=== PATIENT | female | born 1985 | race Caucasian/White ===

== ENCOUNTER 2022-09-05 08:59 | Outpatient (CLI) | payer MEDICARE, MEDICAID, SELFPAY ==
[2022-09-05 10:36] LABS: Anion Gap 10 mmol/L (8-16); Blood Urea Nitrogen 25 mg/dL (7-17); Calcium 9.7 mg/dL (8.4-10.2); Carbon Dioxide 19 mmol/L (22-30); Chloride 109 mmol/L (98-107); Estimated Glomerular Filt Rate 43; Glucose 106 mg/dL (65-110); Phosphorus 2.5 mg/dL (2.5-4.5); Sodium 138 mmol/L (137-145)
[2022-09-05 11:30] LABS: Basophils Percent Auto 0.4 % (0.2-1.2); Eosinophils Absolute Auto 0.1 K/mm3 (0-0.3); Hematocrit 32.4 % (37.0-47.0); Hemoglobin 10.5 g/dL (12.0-15.0); Immature Granulocyte Percent A 1.5 % (0-0.5); Lymphocytes Absolute Auto 0.41 K/mm3 (0.9-3.2); Lymphocytes Percent Auto 6.1 % (18.3-44.2); Mean Corpuscular HGB Conc 32.4 g/dl (32-36); Mean Corpuscular Hemoglobin 33.4 pg (26-34); Mean Corpuscular Volume 103.2 fl (80-100); Mean Platelet Volume 9.8 fl (7.4-10.4); Monocytes Absolute Auto 0.4 K/mm3 (0.1-0.6); Monocytes Percent Auto 6.1 % (2.6-8.5); Neutrophils Absolute Auto 5.8 K/mm3 (1.3-6.7); Neutrophils Percent Auto 84.9 % (45.5-73.1); Platelet Count Result 231 k/mm3 (150-375); Red Blood Count 3.14 M/mm3 (4.2-5.4); Red Cell Distribution Width 15.9 % (11.5-14.5); White Blood Count 6.8 K/mm3 (4.5-10.0)
[2022-09-05 11:55] LABS: Creatinine Urine 141.8 mg/dL
[2022-09-05 11:59] LABS: MALB Creatinine Ratio 14.6 mg/g (0-30); Microalbumin Urine Random 20.7 mg/L (0-16.7)
[2022-09-07 20:46] LABS: Tacrolimus Prograf 7.6 mcg/L
== END 2022-09-05 09:00 | disposition home or self-care (01) ==
PROVIDERS: Visit Provider Internal Medicine Nephrology
DX: Z94.0 Kidney transplant status (principal)
CPT/HCPCS: 36415; 80069; 80197; 82043; 85025

== ENCOUNTER 2022-12-05 08:37 | Outpatient (RCR) | payer MEDICARE, MEDICAID, SELFPAY ==
[2022-09-08 09:12] LABS: Albumin Level 3.8 g/dL (3.5-5.1); Anion Gap 5 mmol/L (8-16); Blood Urea Nitrogen 30 mg/dL (7-17); Calcium 10.2 mg/dL (8.4-10.2); Carbon Dioxide 22 mmol/L (22-30); Chloride 107 mmol/L (98-107); Estimated Glomerular Filt Rate 39; Glucose 93 mg/dL (65-110); Phosphorus 2.5 mg/dL (2.5-4.5); Potassium 3.8 mmol/L (3.4-5.0); Sodium 134 mmol/L (137-145)
[2022-09-08 09:17] LABS: Basophils Percent Auto 0.4 % (0.2-1.2); Eosinophils Absolute Auto 0.1 K/mm3 (0-0.3); Hemoglobin 10.1 g/dL (12.0-15.0); Immature Granulocyte Absolute 0.08 K/mm3 (0.00-0.031); Immature Granulocyte Percent A 1.5 % (0-0.5); Lymphocytes Percent Auto 7.7 % (18.3-44.2); Mean Corpuscular HGB Conc 32.6 g/dl (32-36); Mean Corpuscular Hemoglobin 33.4 pg (26-34); Mean Corpuscular Volume 102.6 fl (80-100); Monocytes Absolute Auto 0.4 K/mm3 (0.1-0.6); Monocytes Percent Auto 7.5 % (2.6-8.5); Neutrophils Absolute Auto 4.3 K/mm3 (1.3-6.7); Neutrophils Percent Auto 81.9 % (45.5-73.1); Platelet Count Result 243 k/mm3 (150-375); Red Blood Count 3.02 M/mm3 (4.2-5.4); Red Cell Distribution Width 15.5 % (11.5-14.5); White Blood Count 5.2 K/mm3 (4.5-10.0)
[2022-09-08 09:29] LABS: Creatinine Urine 103.1 mg/dL
[2022-09-08 09:34] LABS: MALB Creatinine Ratio 20.4 mg/g (0-30)
[2022-09-12 09:24] LABS: Basophils Percent Auto 0.5 % (0.2-1.2); Eosinophils Absolute Auto 0.1 K/mm3 (0-0.3); Eosinophils Percent Auto 1.2 % (0-4.4); Hematocrit 32.2 % (37.0-47.0); Hemoglobin 10.2 g/dL (12.0-15.0); Immature Granulocyte Absolute 0.07 K/mm3 (0.00-0.031); Immature Granulocyte Percent A 1.2 % (0-0.5); Lymphocytes Absolute Auto 0.46 K/mm3 (0.9-3.2); Lymphocytes Percent Auto 7.9 % (18.3-44.2); Mean Corpuscular HGB Conc 31.7 g/dl (32-36); Mean Corpuscular Hemoglobin 33.1 pg (26-34); Mean Corpuscular Volume 104.5 fl (80-100); Monocytes Absolute Auto 0.5 K/mm3 (0.1-0.6); Monocytes Percent Auto 7.9 % (2.6-8.5); Neutrophils Absolute Auto 4.8 K/mm3 (1.3-6.7); Neutrophils Percent Auto 81.3 % (45.5-73.1); Platelet Count Result 237 k/mm3 (150-375); Red Blood Count 3.08 M/mm3 (4.2-5.4); Red Cell Distribution Width 14.9 % (11.5-14.5); White Blood Count 5.8 K/mm3 (4.5-10.0)
[2022-09-12 13:09] LABS: Albumin Level 3.6 g/dL (3.5-5.1); Anion Gap 5 mmol/L (8-16); Blood Urea Nitrogen 27 mg/dL (7-17); Calcium 9.9 mg/dL (8.4-10.2); Carbon Dioxide 21 mmol/L (22-30); Chloride 109 mmol/L (98-107); Estimated Glomerular Filt Rate 36; Glucose 80 mg/dL (65-110); Phosphorus 2.6 mg/dL (2.5-4.5); Potassium 3.6 mmol/L (3.4-5.0); Sodium 135 mmol/L (137-145)
[2022-09-12 18:11] LABS: Creatinine Urine 105.1 mg/dL
[2022-09-12 18:16] LABS: MALB Creatinine Ratio 26.7 mg/g (0-30); Microalbumin Urine Random 28.1 mg/L (0-16.7)
[2022-09-14 18:39] LABS: Tacrolimus Prograf 9.4 mcg/L
[2022-09-19 10:32] LABS: Basophils Percent Auto 0.5 % (0.2-1.2); Eosinophils Absolute Auto 0.1 K/mm3 (0-0.3); Eosinophils Percent Auto 0.9 % (0-4.4); Hematocrit 32.2 % (37.0-47.0); Hemoglobin 10.5 g/dL (12.0-15.0); Immature Granulocyte Absolute 0.05 K/mm3 (0.00-0.031); Immature Granulocyte Percent A 0.8 % (0-0.5); Lymphocytes Absolute Auto 0.51 K/mm3 (0.9-3.2); Mean Corpuscular HGB Conc 32.6 g/dl (32-36); Mean Corpuscular Hemoglobin 32.7 pg (26-34); Mean Corpuscular Volume 100.3 fl (80-100); Mean Platelet Volume 10.4 fl (7.4-10.4); Monocytes Absolute Auto 0.5 K/mm3 (0.1-0.6); Monocytes Percent Auto 8.4 % (2.6-8.5); Neutrophils Absolute Auto 5.2 K/mm3 (1.3-6.7); Neutrophils Percent Auto 81.4 % (45.5-73.1); Platelet Count Result 269 k/mm3 (150-375); Red Blood Count 3.21 M/mm3 (4.2-5.4); Red Cell Distribution Width 13.9 % (11.5-14.5); White Blood Count 6.4 K/mm3 (4.5-10.0)
[2022-09-19 11:36] LABS: Albumin Level 3.7 g/dL (3.5-5.1); Anion Gap 6 mmol/L (8-16); Blood Urea Nitrogen 32 mg/dL (7-17); Calcium 9.3 mg/dL (8.4-10.2); Carbon Dioxide 23 mmol/L (22-30); Chloride 109 mmol/L (98-107); Estimated Glomerular Filt Rate 30; Glucose 84 mg/dL (65-110); Phosphorus 2.9 mg/dL (2.5-4.5); Potassium 3.7 mmol/L (3.4-5.0); Sodium 138 mmol/L (137-145)
[2022-09-19 12:45] LABS: Creatinine Urine 109.9 mg/dL
[2022-09-19 12:52] LABS: MALB Creatinine Ratio 28.5 mg/g (0-30); Microalbumin Urine Random 31.3 mg/L (0-16.7)
[2022-09-21 15:03] LABS: Tacrolimus Prograf 13.6 mcg/L
[2022-09-26 09:28] LABS: Basophils Percent Auto 0.6 % (0.2-1.2); Eosinophils Absolute Auto 0.1 K/mm3 (0-0.3); Eosinophils Percent Auto 0.9 % (0-4.4); Hematocrit 32.6 % (37.0-47.0); Hemoglobin 10.6 g/dL (12.0-15.0); Immature Granulocyte Absolute 0.08 K/mm3 (0.00-0.031); Immature Granulocyte Percent A 1.2 % (0-0.5); Lymphocytes Absolute Auto 0.44 K/mm3 (0.9-3.2); Lymphocytes Percent Auto 6.8 % (18.3-44.2); Mean Corpuscular HGB Conc 32.5 g/dl (32-36); Mean Corpuscular Hemoglobin 32.4 pg (26-34); Mean Corpuscular Volume 99.7 fl (80-100); Mean Platelet Volume 9.7 fl (7.4-10.4); Monocytes Absolute Auto 0.5 K/mm3 (0.1-0.6); Monocytes Percent Auto 8.1 % (2.6-8.5); Neutrophils Absolute Auto 5.3 K/mm3 (1.3-6.7); Neutrophils Percent Auto 82.4 % (45.5-73.1); Platelet Count Result 260 k/mm3 (150-375); Red Blood Count 3.27 M/mm3 (4.2-5.4); Red Cell Distribution Width 13.3 % (11.5-14.5); White Blood Count 6.4 K/mm3 (4.5-10.0)
[2022-09-26 09:38] LABS: Albumin Level 3.8 g/dL (3.5-5.1); Anion Gap 7 mmol/L (8-16); Blood Urea Nitrogen 39 mg/dL (7-17); Calcium 9.5 mg/dL (8.4-10.2); Carbon Dioxide 24 mmol/L (22-30); Chloride 106 mmol/L (98-107); Estimated Glomerular Filt Rate 24; Glucose 96 mg/dL (65-110); Phosphorus 3.3 mg/dL (2.5-4.5); Potassium 3.4 mmol/L (3.4-5.0); Sodium 137 mmol/L (137-145)
[2022-09-26 14:10] LABS: MALB Creatinine Ratio 7.1 mg/g (0-30); Microalbumin Urine Random 7.4 mg/L (0-16.7)
[2022-09-28 20:56] LABS: Tacrolimus Prograf 10.5 mcg/L
[2022-10-10 10:26] LABS: Basophils Absolute Auto 0.1 K/mm3 (0.0-0.1); Basophils Percent Auto 1.1 % (0.2-1.2); Eosinophils Absolute Auto 0.1 K/mm3 (0-0.3); Eosinophils Percent Auto 1.6 % (0-4.4); Hemoglobin 10.7 g/dL (12.0-15.0); Immature Granulocyte Absolute 0.03 K/mm3 (0.00-0.031); Immature Granulocyte Percent A 0.5 % (0-0.5); Lymphocytes Absolute Auto 0.36 K/mm3 (0.9-3.2); Lymphocytes Percent Auto 6.4 % (18.3-44.2); Mean Corpuscular HGB Conc 32.4 g/dl (32-36); Mean Corpuscular Hemoglobin 32.4 pg (26-34); Monocytes Absolute Auto 0.7 K/mm3 (0.1-0.6); Monocytes Percent Auto 12.1 % (2.6-8.5); Neutrophils Absolute Auto 4.4 K/mm3 (1.3-6.7); Neutrophils Percent Auto 78.3 % (45.5-73.1); Platelet Count Result 349 k/mm3 (150-375); Red Cell Distribution Width 13.4 % (11.5-14.5); White Blood Count 5.6 K/mm3 (4.5-10.0)
[2022-10-10 10:35] LABS: Albumin Level 4.1 g/dL (3.5-5.1); Anion Gap 10 mmol/L (8-16); Blood Urea Nitrogen 38 mg/dL (7-17); Calcium 10.3 mg/dL (8.4-10.2); Carbon Dioxide 25 mmol/L (22-30); Chloride 104 mmol/L (98-107); Estimated Glomerular Filt Rate 34; Glucose 79 mg/dL (65-110); Phosphorus 2.9 mg/dL (2.5-4.5); Potassium 3.3 mmol/L (3.4-5.0); Sodium 139 mmol/L (137-145)
[2022-10-10 11:01] LABS: Creatinine Urine 80.2 mg/dL
[2022-10-10 11:06] LABS: MALB Creatinine Ratio 7.7 mg/g (0-30); Microalbumin Urine Random 6.2 mg/L (0-16.7)
[2022-10-12 23:38] LABS: Tacrolimus Prograf 6.9 mcg/L
[2022-10-17 09:16] LABS: Basophils Absolute Auto 0.1 K/mm3 (0.0-0.1); Eosinophils Absolute Auto 0.1 K/mm3 (0-0.3); Eosinophils Percent Auto 1.2 % (0-4.4); Hematocrit 32.2 % (37.0-47.0); Hemoglobin 10.4 g/dL (12.0-15.0); Immature Granulocyte Absolute 0.03 K/mm3 (0.00-0.031); Immature Granulocyte Percent A 0.6 % (0-0.5); Lymphocytes Absolute Auto 0.27 K/mm3 (0.9-3.2); Lymphocytes Percent Auto 5.2 % (18.3-44.2); Mean Corpuscular HGB Conc 32.3 g/dl (32-36); Mean Corpuscular Hemoglobin 32.9 pg (26-34); Mean Corpuscular Volume 101.9 fl (80-100); Mean Platelet Volume 9.9 fl (7.4-10.4); Monocytes Absolute Auto 0.4 K/mm3 (0.1-0.6); Monocytes Percent Auto 8.5 % (2.6-8.5); Neutrophils Absolute Auto 4.3 K/mm3 (1.3-6.7); Neutrophils Percent Auto 83.5 % (45.5-73.1); Platelet Count Result 314 k/mm3 (150-375); Red Blood Count 3.16 M/mm3 (4.2-5.4); Red Cell Distribution Width 13.9 % (11.5-14.5); White Blood Count 5.2 K/mm3 (4.5-10.0)
[2022-10-17 09:25] LABS: Albumin Level 3.8 g/dL (3.5-5.1); Anion Gap 9 mmol/L (8-16); Blood Urea Nitrogen 31 mg/dL (7-17); Calcium 10.3 mg/dL (8.4-10.2); Carbon Dioxide 20 mmol/L (22-30); Chloride 108 mmol/L (98-107); Estimated Glomerular Filt Rate 39; Glucose 94 mg/dL (65-110); Phosphorus 2.6 mg/dL (2.5-4.5); Sodium 137 mmol/L (137-145)
[2022-10-17 09:49] LABS: Creatinine Urine 78.1 mg/dL
[2022-10-17 09:53] LABS: MALB Creatinine Ratio 13.7 mg/g (0-30); Microalbumin Urine Random 10.7 mg/L (0-16.7)
[2022-10-20 08:25] LABS: Tacrolimus Prograf 6.4 mcg/L
[2022-10-24 09:16] LABS: Basophils Absolute Auto 0.1 K/mm3 (0.0-0.1); Basophils Percent Auto 0.9 % (0.2-1.2); Eosinophils Absolute Auto 0.1 K/mm3 (0-0.3); Eosinophils Percent Auto 2.1 % (0-4.4); Hematocrit 34.6 % (37.0-47.0); Hemoglobin 11.2 g/dL (12.0-15.0); Immature Granulocyte Absolute 0.06 K/mm3 (0.00-0.031); Immature Granulocyte Percent A 1.1 % (0-0.5); Lymphocytes Absolute Auto 0.36 K/mm3 (0.9-3.2); Lymphocytes Percent Auto 6.4 % (18.3-44.2); Mean Corpuscular HGB Conc 32.4 g/dl (32-36); Mean Corpuscular Hemoglobin 32.9 pg (26-34); Mean Corpuscular Volume 101.8 fl (80-100); Mean Platelet Volume 9.6 fl (7.4-10.4); Monocytes Absolute Auto 0.4 K/mm3 (0.1-0.6); Monocytes Percent Auto 7.3 % (2.6-8.5); Neutrophils Absolute Auto 4.6 K/mm3 (1.3-6.7); Neutrophils Percent Auto 82.2 % (45.5-73.1); Platelet Count Result 366 k/mm3 (150-375); Red Cell Distribution Width 14.3 % (11.5-14.5); White Blood Count 5.6 K/mm3 (4.5-10.0)
[2022-10-24 09:31] LABS: Anion Gap 9 mmol/L (8-16); Blood Urea Nitrogen 29 mg/dL (7-17); Calcium 10.3 mg/dL (8.4-10.2); Carbon Dioxide 23 mmol/L (22-30); Chloride 107 mmol/L (98-107); Estimated Glomerular Filt Rate 39; Glucose 102 mg/dL (65-110); Phosphorus 2.8 mg/dL (2.5-4.5); Potassium 3.5 mmol/L (3.4-5.0); Sodium 139 mmol/L (137-145)
[2022-10-24 09:58] LABS: Creatinine Urine 95.1 mg/dL
[2022-10-24 10:03] LABS: MALB Creatinine Ratio 23.1 mg/g (0-30)
[2022-10-26 20:57] LABS: Tacrolimus Prograf 7.8 mcg/L
[2022-10-31 09:02] LABS: Basophils Absolute Auto 0.1 K/mm3 (0.0-0.1); Eosinophils Absolute Auto 0.1 K/mm3 (0-0.3); Hematocrit 33.7 % (37.0-47.0); Hemoglobin 10.9 g/dL (12.0-15.0); Immature Granulocyte Absolute 0.09 K/mm3 (0.00-0.031); Immature Granulocyte Percent A 1.8 % (0-0.5); Lymphocytes Absolute Auto 0.29 K/mm3 (0.9-3.2); Lymphocytes Percent Auto 5.8 % (18.3-44.2); Mean Corpuscular HGB Conc 32.3 g/dl (32-36); Mean Corpuscular Hemoglobin 32.6 pg (26-34); Mean Corpuscular Volume 100.9 fl (80-100); Mean Platelet Volume 9.5 fl (7.4-10.4); Monocytes Absolute Auto 0.5 K/mm3 (0.1-0.6); Monocytes Percent Auto 10.7 % (2.6-8.5); Neutrophils Absolute Auto 3.9 K/mm3 (1.3-6.7); Neutrophils Percent Auto 78.7 % (45.5-73.1); Platelet Count Result 306 k/mm3 (150-375); Red Blood Count 3.34 M/mm3 (4.2-5.4); Red Cell Distribution Width 14.8 % (11.5-14.5)
[2022-10-31 09:15] LABS: Albumin Level 3.9 g/dL (3.5-5.1); Anion Gap 7 mmol/L (8-16); Blood Urea Nitrogen 29 mg/dL (7-17); Calcium 9.8 mg/dL (8.4-10.2); Carbon Dioxide 24 mmol/L (22-30); Chloride 106 mmol/L (98-107); Estimated Glomerular Filt Rate 39; Glucose 104 mg/dL (65-110); Phosphorus 2.8 mg/dL (2.5-4.5); Potassium 3.6 mmol/L (3.4-5.0); Sodium 137 mmol/L (137-145)
[2022-10-31 10:04] LABS: Creatinine Urine 112.2 mg/dL
[2022-10-31 10:09] LABS: MALB Creatinine Ratio 11.5 mg/g (0-30); Microalbumin Urine Random 12.9 mg/L (0-16.7)
[2022-11-02 18:59] LABS: Tacrolimus Prograf 6.9 mcg/L
[2022-11-07 09:40] LABS: Basophils Absolute Auto 0.1 K/mm3 (0.0-0.1); Basophils Percent Auto 1.3 % (0.2-1.2); Eosinophils Absolute Auto 0.1 K/mm3 (0-0.3); Eosinophils Percent Auto 2.3 % (0-4.4); Hematocrit 32.8 % (37.0-47.0); Hemoglobin 10.6 g/dL (12.0-15.0); Immature Granulocyte Absolute 0.08 K/mm3 (0.00-0.031); Lymphocytes Absolute Auto 0.28 K/mm3 (0.9-3.2); Mean Corpuscular HGB Conc 32.3 g/dl (32-36); Mean Corpuscular Hemoglobin 32.7 pg (26-34); Mean Corpuscular Volume 101.2 fl (80-100); Mean Platelet Volume 9.8 fl (7.4-10.4); Monocytes Absolute Auto 0.4 K/mm3 (0.1-0.6); Monocytes Percent Auto 10.8 % (2.6-8.5); Neutrophils Absolute Auto 3.1 K/mm3 (1.3-6.7); Neutrophils Percent Auto 76.6 % (45.5-73.1); Platelet Count Result 351 k/mm3 (150-375); Red Blood Count 3.24 M/mm3 (4.2-5.4); Red Cell Distribution Width 15.1 % (11.5-14.5)
[2022-11-07 09:54] LABS: Albumin Level 3.9 g/dL (3.5-5.1); Anion Gap 6 mmol/L (8-16); Blood Urea Nitrogen 29 mg/dL (7-17); Calcium 10.1 mg/dL (8.4-10.2); Carbon Dioxide 24 mmol/L (22-30); Chloride 109 mmol/L (98-107); Estimated Glomerular Filt Rate 30; Glucose 96 mg/dL (65-110); Phosphorus 2.6 mg/dL (2.5-4.5); Potassium 3.6 mmol/L (3.4-5.0); Sodium 139 mmol/L (137-145)
[2022-11-07 10:52] LABS: Creatinine Urine 118.6 mg/dL
[2022-11-07 11:30] LABS: MALB Creatinine Ratio 263.7 mg/g (0-30); Microalbumin Urine Random 312.7 mg/L (0-16.7)
[2022-11-10 02:10] LABS: Tacrolimus Prograf 9.3 mcg/L
[2022-11-14 07:32] LABS: Basophils Percent Auto 0.8 % (0.2-1.2); Eosinophils Absolute Auto 0.1 K/mm3 (0-0.3); Eosinophils Percent Auto 2.5 % (0-4.4); Hematocrit 32.8 % (37.0-47.0); Hemoglobin 10.8 g/dL (12.0-15.0); Immature Granulocyte Absolute 0.04 K/mm3 (0.00-0.031); Immature Granulocyte Percent A 0.8 % (0-0.5); Lymphocytes Absolute Auto 0.31 K/mm3 (0.9-3.2); Lymphocytes Percent Auto 6.6 % (18.3-44.2); Mean Corpuscular HGB Conc 32.9 g/dl (32-36); Mean Corpuscular Volume 100.3 fl (80-100); Mean Platelet Volume 9.4 fl (7.4-10.4); Monocytes Absolute Auto 0.5 K/mm3 (0.1-0.6); Monocytes Percent Auto 10.6 % (2.6-8.5); Neutrophils Absolute Auto 3.7 K/mm3 (1.3-6.7); Neutrophils Percent Auto 78.7 % (45.5-73.1); Platelet Count Result 352 k/mm3 (150-375); Red Blood Count 3.27 M/mm3 (4.2-5.4); Red Cell Distribution Width 15.6 % (11.5-14.5); White Blood Count 4.7 K/mm3 (4.5-10.0)
[2022-11-14 07:42] LABS: Albumin Level 3.9 g/dL (3.5-5.1); Anion Gap 5 mmol/L (8-16); Blood Urea Nitrogen 33 mg/dL (7-17); Calcium 10.6 mg/dL (8.4-10.2); Carbon Dioxide 25 mmol/L (22-30); Chloride 105 mmol/L (98-107); Estimated Glomerular Filt Rate 34; Glucose 91 mg/dL (65-110); Phosphorus 3.2 mg/dL (2.5-4.5); Potassium 3.6 mmol/L (3.4-5.0); Sodium 135 mmol/L (137-145)
[2022-11-14 08:30] LABS: Appearance Urine Clear (Clear); Bilirubin Urine Negative (Negative); Blood Urine Negative (Negative); Color Urine Yellow (Yellow); Glucose Urine UA Negative (Negative); Ketones Urine Negative (Negative); Leukocyte Esterase Ur Negative LEU/UL (NEGATIVE); Nitrate Urine Negative (Negative); Protein Urine Negative (Negative); Specific Grav Ur 1.014 (1.001-1.035); Urobilinogen Urine 0.2 mg/dL (<2.0); pH Urine 6.5 (5.0-9.0)
[2022-11-14 08:39] LABS: Add Urine Microscopic? NO
[2022-11-14 09:09] LABS: MALB Creatinine Ratio 11.7 mg/g (0-30); Microalbumin Urine Random 7.7 mg/L (0-16.7)
[2022-11-21 09:40] LABS: Basophils Absolute Auto 0.1 K/mm3 (0.0-0.1); Basophils Percent Auto 0.9 % (0.2-1.2); Eosinophils Absolute Auto 0.1 K/mm3 (0-0.3); Eosinophils Percent Auto 2.1 % (0-4.4); Hematocrit 31.2 % (37.0-47.0); Hemoglobin 10.2 g/dL (12.0-15.0); Immature Granulocyte Absolute 0.07 K/mm3 (0.00-0.031); Immature Granulocyte Percent A 1.2 % (0-0.5); Lymphocytes Absolute Auto 0.36 K/mm3 (0.9-3.2); Lymphocytes Percent Auto 6.3 % (18.3-44.2); Mean Corpuscular HGB Conc 32.7 g/dl (32-36); Mean Corpuscular Hemoglobin 33.1 pg (26-34); Mean Corpuscular Volume 101.3 fl (80-100); Mean Platelet Volume 9.8 fl (7.4-10.4); Monocytes Absolute Auto 0.5 K/mm3 (0.1-0.6); Monocytes Percent Auto 7.8 % (2.6-8.5); Neutrophils Absolute Auto 4.7 K/mm3 (1.3-6.7); Neutrophils Percent Auto 81.7 % (45.5-73.1); Platelet Count Result 335 k/mm3 (150-375); Red Blood Count 3.08 M/mm3 (4.2-5.4); Red Cell Distribution Width 16.2 % (11.5-14.5); White Blood Count 5.7 K/mm3 (4.5-10.0)
[2022-11-21 09:48] LABS: Albumin Level 3.7 g/dL (3.5-5.1); Anion Gap 8 mmol/L (8-16); Blood Urea Nitrogen 25 mg/dL (7-17); Calcium 9.7 mg/dL (8.4-10.2); Carbon Dioxide 22 mmol/L (22-30); Chloride 107 mmol/L (98-107); Estimated Glomerular Filt Rate 43; Glucose 100 mg/dL (65-110); Phosphorus 2.8 mg/dL (2.5-4.5); Potassium 3.4 mmol/L (3.4-5.0); Sodium 137 mmol/L (137-145)
[2022-11-21 09:58] LABS: Creatinine Urine 87.3 mg/dL
[2022-11-21 10:04] LABS: MALB Creatinine Ratio 11.3 mg/g (0-30); Microalbumin Urine Random 9.9 mg/L (0-16.7)
[2022-11-24 16:58] LABS: Tacrolimus Prograf 6.5 mcg/L
[2022-11-29 09:12] LABS: Basophils Percent Auto 0.6 % (0.2-1.2); Eosinophils Absolute Auto 0.1 K/mm3 (0-0.3); Eosinophils Percent Auto 2.2 % (0-4.4); Hematocrit 31.2 % (37.0-47.0); Hemoglobin 10.1 g/dL (12.0-15.0); Immature Granulocyte Absolute 0.07 K/mm3 (0.00-0.031); Immature Granulocyte Percent A 1.4 % (0-0.5); Mean Corpuscular HGB Conc 32.4 g/dl (32-36); Mean Corpuscular Hemoglobin 32.9 pg (26-34); Mean Corpuscular Volume 101.6 fl (80-100); Mean Platelet Volume 9.7 fl (7.4-10.4); Monocytes Absolute Auto 0.5 K/mm3 (0.1-0.6); Monocytes Percent Auto 9.6 % (2.6-8.5); Neutrophils Percent Auto 80.2 % (45.5-73.1); Platelet Count Result 277 k/mm3 (150-375); Red Blood Count 3.07 M/mm3 (4.2-5.4)
[2022-11-29 09:22] LABS: Albumin Level 3.7 g/dL (3.5-5.1); Anion Gap 8 mmol/L (8-16); Blood Urea Nitrogen 34 mg/dL (7-17); Calcium 9.6 mg/dL (8.4-10.2); Carbon Dioxide 23 mmol/L (22-30); Chloride 106 mmol/L (98-107); Estimated Glomerular Filt Rate 24; Glucose 99 mg/dL (65-110); Phosphorus 3.4 mg/dL (2.5-4.5); Potassium 3.5 mmol/L (3.4-5.0); Sodium 137 mmol/L (137-145)
[2022-11-29 09:41] LABS: Creatinine Urine 113.5 mg/dL
[2022-11-29 09:51] LABS: MALB Creatinine Ratio < 5.3 mg/g (0-30); Microalbumin Urine Random < 6.0 mg/L (0-16.7)
[2022-12-02 17:08] LABS: Tacrolimus Prograf 7.8 mcg/L
[2022-12-05 09:05] LABS: Basophils Percent Auto 0.7 % (0.2-1.2); Eosinophils Absolute Auto 0.1 K/mm3 (0-0.3); Eosinophils Percent Auto 2.1 % (0-4.4); Hematocrit 30.6 % (37.0-47.0); Immature Granulocyte Absolute 0.05 K/mm3 (0.00-0.031); Immature Granulocyte Percent A 1.2 % (0-0.5); Lymphocytes Absolute Auto 0.24 K/mm3 (0.9-3.2); Lymphocytes Percent Auto 5.6 % (18.3-44.2); Mean Corpuscular HGB Conc 32.7 g/dl (32-36); Mean Corpuscular Hemoglobin 33.2 pg (26-34); Mean Corpuscular Volume 101.7 fl (80-100); Mean Platelet Volume 9.9 fl (7.4-10.4); Monocytes Absolute Auto 0.4 K/mm3 (0.1-0.6); Monocytes Percent Auto 9.2 % (2.6-8.5); Neutrophils Absolute Auto 3.5 K/mm3 (1.3-6.7); Neutrophils Percent Auto 81.2 % (45.5-73.1); Platelet Count Result 292 k/mm3 (150-375); Red Blood Count 3.01 M/mm3 (4.2-5.4); Red Cell Distribution Width 17.7 % (11.5-14.5); White Blood Count 4.3 K/mm3 (4.5-10.0)
[2022-12-05 09:20] LABS: Albumin Level 3.7 g/dL (3.5-5.1); Anion Gap 8 mmol/L (8-16); Blood Urea Nitrogen 26 mg/dL (7-17); Calcium 9.9 mg/dL (8.4-10.2); Carbon Dioxide 23 mmol/L (22-30); Chloride 107 mmol/L (98-107); Estimated Glomerular Filt Rate 32; Glucose 101 mg/dL (65-110); Phosphorus 2.8 mg/dL (2.5-4.5); Potassium 3.9 mmol/L (3.4-5.0); Sodium 138 mmol/L (137-145)
[2022-12-05 09:53] LABS: Creatinine Urine 99.6 mg/dL
[2022-12-05 09:57] LABS: MALB Creatinine Ratio 57.7 mg/g (0-30); Microalbumin Urine Random 57.5 mg/L (0-16.7)
[2022-12-08 21:04] LABS: Tacrolimus Prograf 4.2 mcg/L
== END 2022-12-07 23:59 | disposition home or self-care (01) ==
LOC: ANHLAB 08:37
PROVIDERS: Visit Provider Internal Medicine Nephrology
DX: Z94.0 Kidney transplant status (principal)
CPT/HCPCS: 36415; 80069; 80197; 81003; 82043; 85025; 87798; 87799

== ENCOUNTER 2023-01-09 08:48 | Outpatient (RCR) | payer MEDICARE, MEDICAID, SELFPAY ==
[2022-12-14 10:05] LABS: Basophils Percent Auto 0.7 % (0.2-1.2); Eosinophils Absolute Auto 0.1 K/mm3 (0-0.3); Eosinophils Percent Auto 2.2 % (0-4.4); Hematocrit 30.4 % (37.0-47.0); Hemoglobin 9.9 g/dL (12.0-15.0); Immature Granulocyte Absolute 0.15 K/mm3 (0.00-0.031); Immature Granulocyte Percent A 3.7 % (0-0.5); Lymphocytes Percent Auto 7.4 % (18.3-44.2); Mean Corpuscular HGB Conc 32.6 g/dl (32-36); Mean Corpuscular Hemoglobin 33.7 pg (26-34); Mean Corpuscular Volume 103.4 fl (80-100); Mean Platelet Volume 10.2 fl (7.4-10.4); Monocytes Absolute Auto 0.3 K/mm3 (0.1-0.6); Monocytes Percent Auto 7.9 % (2.6-8.5); Neutrophils Absolute Auto 3.2 K/mm3 (1.3-6.7); Neutrophils Percent Auto 78.1 % (45.5-73.1); Platelet Count Result 307 k/mm3 (150-375); Red Blood Count 2.94 M/mm3 (4.2-5.4)
[2022-12-14 10:16] LABS: Albumin Level 3.5 g/dL (3.5-5.1); Anion Gap 5 mmol/L (8-16); Blood Urea Nitrogen 20 mg/dL (7-17); Carbon Dioxide 23 mmol/L (22-30); Chloride 110 mmol/L (98-107); Estimated Glomerular Filt Rate 46; Glucose 93 mg/dL (65-110); Phosphorus 2.6 mg/dL (2.5-4.5); Potassium 3.9 mmol/L (3.4-5.0); Sodium 138 mmol/L (137-145)
[2022-12-14 10:59] LABS: Creatinine Urine 174.8 mg/dL
[2022-12-14 11:03] LABS: MALB Creatinine Ratio 5.8 mg/g (0-30); Microalbumin Urine Random 10.1 mg/L (0-16.7)
[2022-12-17 10:12] LABS: Tacrolimus Prograf 6.4 mcg/L
[2022-12-19 09:21] LABS: Basophils Percent Auto 0.7 % (0.2-1.2); Eosinophils Absolute Auto 0.1 K/mm3 (0-0.3); Eosinophils Percent Auto 1.8 % (0-4.4); Hematocrit 29.1 % (37.0-47.0); Hemoglobin 9.7 g/dL (12.0-15.0); Immature Granulocyte Absolute 0.07 K/mm3 (0.00-0.031); Immature Granulocyte Percent A 1.6 % (0-0.5); Lymphocytes Absolute Auto 0.28 K/mm3 (0.9-3.2); Lymphocytes Percent Auto 6.4 % (18.3-44.2); Mean Corpuscular HGB Conc 33.3 g/dl (32-36); Mean Corpuscular Hemoglobin 34.5 pg (26-34); Mean Corpuscular Volume 103.6 fl (80-100); Mean Platelet Volume 9.9 fl (7.4-10.4); Monocytes Absolute Auto 0.5 K/mm3 (0.1-0.6); Monocytes Percent Auto 11.3 % (2.6-8.5); Neutrophils Absolute Auto 3.4 K/mm3 (1.3-6.7); Neutrophils Percent Auto 78.2 % (45.5-73.1); Platelet Count Result 257 k/mm3 (150-375); Red Blood Count 2.81 M/mm3 (4.2-5.4); Red Cell Distribution Width 20.5 % (11.5-14.5); White Blood Count 4.4 K/mm3 (4.5-10.0)
[2022-12-19 09:32] LABS: Albumin Level 3.4 g/dL (3.5-5.1); Anion Gap 6 mmol/L (8-16); Blood Urea Nitrogen 20 mg/dL (7-17); Calcium 9.4 mg/dL (8.4-10.2); Carbon Dioxide 20 mmol/L (22-30); Chloride 110 mmol/L (98-107); Estimated Glomerular Filt Rate 46; Glucose 103 mg/dL (65-110); Phosphorus 2.9 mg/dL (2.5-4.5); Potassium 3.8 mmol/L (3.4-5.0); Sodium 136 mmol/L (137-145)
[2022-12-19 09:56] LABS: Creatinine Urine 124.4 mg/dL
[2022-12-19 10:01] LABS: MALB Creatinine Ratio < 4.8 mg/g (0-30); Microalbumin Urine Random < 6.0 mg/L (0-16.7)
[2022-12-22 07:13] LABS: Tacrolimus Prograf 5.9 mcg/L
[2022-12-26 10:11] LABS: Basophils Percent Auto 0.7 % (0.2-1.2); Eosinophils Absolute Auto 0.1 K/mm3 (0-0.3); Eosinophils Percent Auto 2.3 % (0-4.4); Hematocrit 31.9 % (37.0-47.0); Hemoglobin 10.4 g/dL (12.0-15.0); Immature Granulocyte Percent A 6.8 % (0-0.5); Lymphocytes Absolute Auto 0.28 K/mm3 (0.9-3.2); Lymphocytes Percent Auto 6.3 % (18.3-44.2); Mean Corpuscular HGB Conc 32.6 g/dl (32-36); Mean Corpuscular Hemoglobin 34.9 pg (26-34); Mean Platelet Volume 10.2 fl (7.4-10.4); Monocytes Absolute Auto 0.6 K/mm3 (0.1-0.6); Monocytes Percent Auto 14.5 % (2.6-8.5); Neutrophils Absolute Auto 3.1 K/mm3 (1.3-6.7); Neutrophils Percent Auto 69.4 % (45.5-73.1); Platelet Count Result 243 k/mm3 (150-375); Red Blood Count 2.98 M/mm3 (4.2-5.4); Red Cell Distribution Width 21.7 % (11.5-14.5); White Blood Count 4.4 K/mm3 (4.5-10.0)
[2022-12-26 10:29] LABS: Albumin Level 3.6 g/dL (3.5-5.1); Anion Gap 7 mmol/L (8-16); Blood Urea Nitrogen 18 mg/dL (7-17); Carbon Dioxide 20 mmol/L (22-30); Chloride 110 mmol/L (98-107); Estimated Glomerular Filt Rate 39; Glucose 87 mg/dL (65-110); Phosphorus 2.7 mg/dL (2.5-4.5); Potassium 4.1 mmol/L (3.4-5.0); Sodium 137 mmol/L (137-145)
[2022-12-26 10:33] LABS: Platelet Estimate Adequate (Adequate)
[2022-12-26 10:34] LABS: Burr Cells 1+ (NORMAL); Macrocytosis 2+ (NORMAL); Poikilocytosis 1+ (NORMAL); Schistocytes None Seen (NORMAL)
[2022-12-26 11:05] LABS: Creatinine Urine 179.3 mg/dL
[2022-12-26 11:22] LABS: Microalbumin Urine Random < 6.0 mg/L (0-16.7)
[2022-12-26 11:23] LABS: MALB Creatinine Ratio < 3.3 mg/g (0-30)
[2022-12-29 21:58] LABS: Tacrolimus Prograf 6.6 mcg/L
[2023-01-03 08:33] LABS: Hematocrit 30.1 % (37.0-47.0); Hemoglobin 10.1 g/dL (12.0-15.0); Mean Corpuscular HGB Conc 33.6 g/dl (32-36); Mean Corpuscular Hemoglobin 35.9 pg (26-34); Mean Corpuscular Volume 107.1 fl (80-100); Mean Platelet Volume 9.9 fl (7.4-10.4); Platelet Count Result 328 k/mm3 (150-375); Red Blood Count 2.81 M/mm3 (4.2-5.4); Red Cell Distribution Width 19.8 % (11.5-14.5); White Blood Count 5.1 K/mm3 (4.5-10.0)
[2023-01-03 08:53] LABS: Albumin Level 3.7 g/dL (3.5-5.1); Anion Gap 7 mmol/L (8-16); Blood Urea Nitrogen 23 mg/dL (7-17); Calcium 10.5 mg/dL (8.4-10.2); Carbon Dioxide 20 mmol/L (22-30); Chloride 110 mmol/L (98-107); Estimated Glomerular Filt Rate 32; Glucose 110 mg/dL (65-110); Phosphorus 2.6 mg/dL (2.5-4.5); Potassium 4.2 mmol/L (3.4-5.0); Sodium 137 mmol/L (137-145)
[2023-01-03 08:58] LABS: Creatinine Urine 192.6 mg/dL
[2023-01-03 09:03] LABS: MALB Creatinine Ratio 14.1 mg/g (0-30); Microalbumin Urine Random 27.2 mg/L (0-16.7)
[2023-01-03 09:40] LABS: Band Neutrophils Percent 2 % (0-6); Monocytes Absolute Manual 0.25 K/mm3 (0.1-0.90); Monocytes Percent Manual 5 % (3-9); Neutrophils Absolute Manual 4.74 K/mm3 (1.7-7.2); Neutrophils Percent Manual 91 % (46-73); Platelet Estimate Adequate (Adequate); Poikilocytosis 1+ (NORMAL); Schistocytes None Seen (NORMAL); Total Cells Counted 100
[2023-01-09 09:38] LABS: Hematocrit 30.8 % (37.0-47.0); Hemoglobin 10.1 g/dL (12.0-15.0); Mean Corpuscular HGB Conc 32.8 g/dl (32-36); Mean Corpuscular Hemoglobin 35.6 pg (26-34); Mean Corpuscular Volume 108.5 fl (80-100); Mean Platelet Volume 9.8 fl (7.4-10.4); Platelet Count Result 404 k/mm3 (150-375); Red Blood Count 2.84 M/mm3 (4.2-5.4); Red Cell Distribution Width 18.6 % (11.5-14.5); White Blood Count 5.3 K/mm3 (4.5-10.0)
[2023-01-09 09:55] LABS: Albumin Level 3.8 g/dL (3.5-5.1); Anion Gap 7 mmol/L (8-16); Blood Urea Nitrogen 24 mg/dL (7-17); Calcium 10.7 mg/dL (8.4-10.2); Carbon Dioxide 25 mmol/L (22-30); Chloride 105 mmol/L (98-107); Estimated Glomerular Filt Rate 32; Glucose 97 mg/dL (65-110); Phosphorus 2.4 mg/dL (2.5-4.5); Potassium 3.8 mmol/L (3.4-5.0); Sodium 137 mmol/L (137-145)
[2023-01-09 10:14] LABS: Creatinine Urine 238.6 mg/dL
[2023-01-09 10:16] LABS: MALB Creatinine Ratio 3.1 mg/g (0-30); Microalbumin Urine Random 7.5 mg/L (0-16.7)
[2023-01-09 10:45] LABS: Band Neutrophils Percent 7 % (0-6); Eosinophils Absolute Manual 0.26 K/mm3 (0.02-0.5); Eosinophils Percent Manual 5 % (0-4); Lymphocytes Absolute Manual 0.15 K/mm3 (1.1-4.5); Lymphocytes Percent Manual 3 % (18-44); Monocytes Absolute Manual 0.42 K/mm3 (0.1-0.90); Monocytes Percent Manual 8 % (3-9); Neutrophils Absolute Manual 4.45 K/mm3 (1.7-7.2); Neutrophils Percent Manual 77 % (46-73); Total Cells Counted 100
[2023-01-09 10:46] LABS: Anisocytosis 1+ (NORMAL); Macrocytosis 1+ (NORMAL)
[2023-01-09 10:47] LABS: Schistocytes None Seen (NORMAL)
[2023-01-11 22:12] LABS: BK Virus DNA, QN PCR log Not Detected Log cps/mL; BK Virus Specimen Source Plasma
[2023-01-12 03:39] LABS: Tacrolimus Prograf 5.6 mcg/L
== END 2023-01-23 08:00 | disposition home or self-care (01) ==
LOC: ANHLAB 08:48
PROVIDERS: Visit Provider Internal Medicine Nephrology
DX: N20.0 Calculus of kidney (principal)
CPT/HCPCS: 36415; 80069; 80197; 82043; 85025; 87799

== ENCOUNTER 2023-01-24 09:13 | Outpatient (CLI) | payer MEDICARE, MEDICAID, SELFPAY ==
[2023-01-24 10:43] LABS: Parathyroid Intact 395.4 pg/mL (7.5-53.5)
== END 2023-01-24 09:14 | disposition home or self-care (01) ==
LOC: ANHLAB 09:17
PROVIDERS: Visit Provider Internal Medicine Nephrology
DX: Z94.0 Kidney transplant status (principal)
CPT/HCPCS: 36415; 80069; 80197; 82043; 83970; 85025; 87799

== ENCOUNTER 2023-04-10 08:28 | Outpatient (RCR) | payer MEDICARE, MEDICAID, SELFPAY ==
[2023-01-24 10:20] LABS: Hematocrit 29.2 % (37.0-47.0); Hemoglobin 9.5 g/dL (12.0-15.0); Mean Corpuscular HGB Conc 32.5 g/dl (32-36); Mean Corpuscular Hemoglobin 36.5 pg (26-34); Mean Corpuscular Volume 112.3 fl (80-100); Mean Platelet Volume 9.9 fl (7.4-10.4); Platelet Count Result 263 k/mm3 (150-375); Red Cell Distribution Width 19.3 % (11.5-14.5); White Blood Count 3.5 K/mm3 (4.5-10.0)
[2023-01-24 10:30] LABS: Albumin Level 3.5 g/dL (3.5-5.1); Anion Gap 6 mmol/L (8-16); Blood Urea Nitrogen 23 mg/dL (7-17); Calcium 10.3 mg/dL (8.4-10.2); Carbon Dioxide 19 mmol/L (22-30); Chloride 114 mmol/L (98-107); Estimated Glomerular Filt Rate 36; Glucose 92 mg/dL (65-110); Phosphorus 2.9 mg/dL (2.5-4.5); Sodium 139 mmol/L (137-145)
[2023-01-24 10:37] LABS: Creatinine Urine 138.3 mg/dL
[2023-01-24 11:03] LABS: Band Neutrophils Percent 7 % (0-6); Eosinophils Percent Manual 3 % (0-4); Lymphocytes Absolute Manual 0.42 K/mm3 (1.1-4.5); Monocytes Percent Manual 3 % (3-9); Neutrophils Absolute Manual 2.87 K/mm3 (1.7-7.2); Neutrophils Percent Manual 75 % (46-73); Platelet Estimate Adequate (Adequate); Schistocytes None Seen (NORMAL); Total Cells Counted 100
[2023-01-24 11:04] LABS: Anisocytosis 1+ (NORMAL); Ovalocytes 2+ (NORMAL)
[2023-01-25 09:54] LABS: MALB Creatinine Ratio < 4.3 mg/g (0-30); Microalbumin Urine Random < 6.0 mg/L (0-16.7)
[2023-01-26 18:09] LABS: Tacrolimus Prograf 6.4 mcg/L
[2023-01-30 09:27] LABS: Basophils Percent Auto 0.9 % (0.2-1.2); Eosinophils Absolute Auto 0.1 K/mm3 (0-0.3); Eosinophils Percent Auto 4.2 % (0-4.4); Hematocrit 28.3 % (37.0-47.0); Hemoglobin 9.4 g/dL (12.0-15.0); Immature Granulocyte Absolute 0.39 K/mm3 (0.00-0.031); Immature Granulocyte Percent A 11.7 % (0-0.5); Lymphocytes Absolute Auto 0.28 K/mm3 (0.9-3.2); Lymphocytes Percent Auto 8.4 % (18.3-44.2); Mean Corpuscular HGB Conc 33.2 g/dl (32-36); Mean Corpuscular Hemoglobin 37.2 pg (26-34); Mean Corpuscular Volume 111.9 fl (80-100); Monocytes Absolute Auto 0.3 K/mm3 (0.1-0.6); Monocytes Percent Auto 10.2 % (2.6-8.5); Neutrophils Absolute Auto 2.2 K/mm3 (1.3-6.7); Neutrophils Percent Auto 64.6 % (45.5-73.1); Platelet Count Result 280 k/mm3 (150-375); Red Blood Count 2.53 M/mm3 (4.2-5.4); Red Cell Distribution Width 18.5 % (11.5-14.5); White Blood Count 3.3 K/mm3 (4.5-10.0)
[2023-01-30 09:37] LABS: Albumin Level 3.7 g/dL (3.5-5.1); Anion Gap 8 mmol/L (8-16); Blood Urea Nitrogen 24 mg/dL (7-17); Calcium 10.6 mg/dL (8.4-10.2); Carbon Dioxide 19 mmol/L (22-30); Chloride 112 mmol/L (98-107); Estimated Glomerular Filt Rate 39; Glucose 102 mg/dL (65-110); Phosphorus 3.3 mg/dL (2.5-4.5); Potassium 3.8 mmol/L (3.4-5.0); Sodium 139 mmol/L (137-145)
[2023-01-30 10:01] LABS: Creatinine Urine 153.6 mg/dL
[2023-01-30 10:10] LABS: Anisocytosis 1+ (NORMAL); Ovalocytes 1+ (NORMAL); Platelet Estimate Adequate (Adequate); Schistocytes None Seen (NORMAL)
[2023-01-30 10:50] LABS: Microalbumin Urine Random 634.4 mg/L (0-16.7)
[2023-02-02 07:19] LABS: Tacrolimus Prograf 7.5 mcg/L
[2023-02-07 09:04] LABS: Hematocrit 30.5 % (37.0-47.0); Hemoglobin 9.9 g/dL (12.0-15.0); Mean Corpuscular HGB Conc 32.5 g/dl (32-36); Mean Corpuscular Hemoglobin 37.5 pg (26-34); Mean Corpuscular Volume 115.5 fl (80-100); Mean Platelet Volume 10.1 fl (7.4-10.4); Platelet Count Result 269 k/mm3 (150-375); Red Blood Count 2.64 M/mm3 (4.2-5.4); Red Cell Distribution Width 18.4 % (11.5-14.5); White Blood Count 3.6 K/mm3 (4.5-10.0)
[2023-02-07 09:17] LABS: Albumin Level 3.6 g/dL (3.5-5.1); Anion Gap 10 mmol/L (8-16); Blood Urea Nitrogen 19 mg/dL (7-17); Calcium 9.7 mg/dL (8.4-10.2); Carbon Dioxide 19 mmol/L (22-30); Chloride 108 mmol/L (98-107); Estimated Glomerular Filt Rate 34; Glucose 98 mg/dL (65-110); Phosphorus 2.8 mg/dL (2.5-4.5); Potassium 3.9 mmol/L (3.4-5.0); Sodium 137 mmol/L (137-145)
[2023-02-07 09:41] LABS: Creatinine Urine 157.1 mg/dL
[2023-02-07 09:56] LABS: Band Neutrophils Percent 8 % (0-6); Eosinophils Absolute Manual 0.03 K/mm3 (0.02-0.5); Eosinophils Percent Manual 1 % (0-4); Lymphocytes Absolute Manual 0.64 K/mm3 (1.1-4.5); Monocytes Absolute Manual 0.14 K/mm3 (0.1-0.90); Monocytes Percent Manual 4 % (3-9); Neutrophils Absolute Manual 2.77 K/mm3 (1.7-7.2); Neutrophils Percent Manual 69 % (46-73); Platelet Estimate Adequate (Adequate); Total Cells Counted 100
[2023-02-07 09:57] LABS: Anisocytosis 1+ (NORMAL); Ovalocytes 1+ (NORMAL); Schistocytes None Seen (NORMAL)
[2023-02-07 10:13] LABS: MALB Creatinine Ratio < 3.8 mg/g (0-30); Microalbumin Urine Random < 6.0 mg/L (0-16.7)
[2023-02-10 00:41] LABS: Tacrolimus Prograf 8.6 mcg/L
[2023-02-13 09:16] LABS: Hematocrit 29.4 % (37.0-47.0); Hemoglobin 9.7 g/dL (12.0-15.0); Mean Corpuscular Hemoglobin 37.9 pg (26-34); Mean Corpuscular Volume 114.8 fl (80-100); Mean Platelet Volume 10.8 fl (7.4-10.4); Platelet Count Result 191 k/mm3 (150-375); Red Blood Count 2.56 M/mm3 (4.2-5.4); Red Cell Distribution Width 18.6 % (11.5-14.5); White Blood Count 3.5 K/mm3 (4.5-10.0)
[2023-02-13 09:40] LABS: Albumin Level 3.6 g/dL (3.5-5.1); Anion Gap 3 mmol/L (8-16); Blood Urea Nitrogen 22 mg/dL (7-17); Calcium 9.5 mg/dL (8.4-10.2); Carbon Dioxide 21 mmol/L (22-30); Chloride 110 mmol/L (98-107); Estimated Glomerular Filt Rate 43; Glucose 96 mg/dL (65-110); Phosphorus 2.9 mg/dL (2.5-4.5); Potassium 3.9 mmol/L (3.4-5.0); Sodium 134 mmol/L (137-145)
[2023-02-13 09:55] LABS: Creatinine Urine 151.1 mg/dL
[2023-02-13 10:56] LABS: MALB Creatinine Ratio < 4.0 mg/g (0-30); Microalbumin Urine Random < 6.0 mg/L (0-16.7)
[2023-02-13 11:54] LABS: Band Neutrophils Percent 15 % (0-6); Eosinophils Absolute Manual 0.14 K/mm3 (0.02-0.5); Eosinophils Percent Manual 4 % (0-4); Lymphocytes Absolute Manual 0.24 K/mm3 (1.1-4.5); Monocytes Absolute Manual 0.24 K/mm3 (0.1-0.90); Monocytes Percent Manual 7 % (3-9); Neutrophils Absolute Manual 2.87 K/mm3 (1.7-7.2); Neutrophils Percent Manual 67 % (46-73); Platelet Estimate Adequate (Adequate); Poikilocytosis 1+ (NORMAL); Total Cells Counted 100
[2023-02-13 11:55] LABS: Burr Cells 1+ (NORMAL); Macrocytosis 1+ (NORMAL); Schistocytes Rare (NORMAL)
[2023-02-15 22:23] LABS: Tacrolimus Prograf 8.2 mcg/L
[2023-02-20 10:04] LABS: Hematocrit 29.7 % (37.0-47.0); Mean Corpuscular HGB Conc 33.7 g/dl (32-36); Mean Corpuscular Hemoglobin 38.5 pg (26-34); Mean Corpuscular Volume 114.2 fl (80-100); Mean Platelet Volume 10.6 fl (7.4-10.4); Platelet Count Result 183 k/mm3 (150-375); Red Cell Distribution Width 18.1 % (11.5-14.5); White Blood Count 3.2 K/mm3 (4.5-10.0)
[2023-02-20 10:13] LABS: Albumin Level 3.6 g/dL (3.5-5.1); Anion Gap 5 mmol/L (8-16); Blood Urea Nitrogen 24 mg/dL (7-17); Calcium 9.3 mg/dL (8.4-10.2); Carbon Dioxide 20 mmol/L (22-30); Chloride 108 mmol/L (98-107); Estimated Glomerular Filt Rate 39; Glucose 92 mg/dL (65-110); Phosphorus 3.1 mg/dL (2.5-4.5); Potassium 3.9 mmol/L (3.4-5.0); Sodium 133 mmol/L (137-145)
[2023-02-20 10:27] LABS: Creatinine Urine 167.8 mg/dL
[2023-02-20 10:31] LABS: MALB Creatinine Ratio 19.5 mg/g (0-30); Microalbumin Urine Random 32.7 mg/L (0-16.7)
[2023-02-20 10:56] LABS: Band Neutrophils Percent 19 % (0-6); Basophils Absolute Manual 0.03 K/mm3 (0.0-0.1); Basophils Percent Manual 1 % (0-1); Eosinophils Absolute Manual 0.09 K/mm3 (0.02-0.5); Eosinophils Percent Manual 3 % (0-4); Hypochromasia 2+ (NORMAL); Lymphocytes Absolute Manual 0.22 K/mm3 (1.1-4.5); Monocytes Absolute Manual 0.22 K/mm3 (0.1-0.90); Monocytes Percent Manual 7 % (3-9); Neutrophils Absolute Manual 2.62 K/mm3 (1.7-7.2); Neutrophils Percent Manual 63 % (46-73); Ovalocytes 1+ (NORMAL); Platelet Estimate Adequate (Adequate); Schistocytes None Seen (NORMAL); Total Cells Counted 100
[2023-02-23 01:19] LABS: Tacrolimus Prograf 9.4 mcg/L
[2023-03-13 08:45] LABS: Hemoglobin 10.6 g/dL (12.0-15.0); Mean Corpuscular HGB Conc 34.2 g/dl (32-36); Mean Corpuscular Hemoglobin 38.8 pg (26-34); Mean Corpuscular Volume 113.6 fl (80-100); Mean Platelet Volume 10.7 fl (7.4-10.4); Platelet Count Result 195 k/mm3 (150-375); Red Blood Count 2.73 M/mm3 (4.2-5.4); Red Cell Distribution Width 17.4 % (11.5-14.5); White Blood Count 4.1 K/mm3 (4.5-10.0)
[2023-03-13 09:02] LABS: Albumin Level 3.9 g/dL (3.5-5.1); Anion Gap 9 mmol/L (8-16); Blood Urea Nitrogen 33 mg/dL (7-17); Carbon Dioxide 20 mmol/L (22-30); Chloride 107 mmol/L (98-107); Estimated Glomerular Filt Rate 43; Glucose 97 mg/dL (65-110); Phosphorus 3.1 mg/dL (2.5-4.5); Potassium 3.8 mmol/L (3.4-5.0); Sodium 136 mmol/L (137-145)
[2023-03-13 09:22] LABS: Band Neutrophils Percent 16 % (0-6); Eosinophils Absolute Manual 0.08 K/mm3 (0.02-0.5); Eosinophils Percent Manual 2 % (0-4); Lymphocytes Absolute Manual 0.45 K/mm3 (1.1-4.5); Metamyelocytes Percent 2 %; Monocytes Absolute Manual 0.16 K/mm3 (0.1-0.90); Monocytes Percent Manual 4 % (3-9); Neutrophils Absolute Manual 3.32 K/mm3 (1.7-7.2); Neutrophils Percent Manual 65 % (46-73); Total Cells Counted 100
[2023-03-13 09:23] LABS: Anisocytosis 2+ (NORMAL); Creatinine Urine 106.3 mg/dL; Giant Platelets Present; Large Platelets Present; Schistocytes None Seen (NORMAL)
[2023-03-13 09:24] LABS: Poikilocytosis 1+ (NORMAL)
[2023-03-13 09:39] LABS: MALB Creatinine Ratio < 5.6 mg/g (0-30); Microalbumin Urine Random < 6.0 mg/L (0-16.7)
[2023-03-16 02:05] LABS: Tacrolimus Prograf 5.2 mcg/L
[2023-03-29 09:39] LABS: Hemoglobin 11.1 g/dL (12.0-15.0); Mean Corpuscular HGB Conc 33.6 g/dl (32-36); Mean Corpuscular Hemoglobin 38.1 pg (26-34); Mean Corpuscular Volume 113.4 fl (80-100); Mean Platelet Volume 10.4 fl (7.4-10.4); Platelet Count Result 157 k/mm3 (150-375); Red Blood Count 2.91 M/mm3 (4.2-5.4); Red Cell Distribution Width 16.3 % (11.5-14.5); White Blood Count 2.8 K/mm3 (4.5-10.0)
[2023-03-29 09:49] LABS: Albumin Level 3.7 g/dL (3.5-5.1); Anion Gap 6 mmol/L (8-16); Blood Urea Nitrogen 22 mg/dL (7-17); Calcium 9.7 mg/dL (8.4-10.2); Carbon Dioxide 21 mmol/L (22-30); Chloride 110 mmol/L (98-107); Estimated Glomerular Filt Rate 43; Glucose 92 mg/dL (65-110); Phosphorus 3.3 mg/dL (2.5-4.5); Potassium 4.2 mmol/L (3.4-5.0); Sodium 137 mmol/L (137-145)
[2023-03-29 10:12] LABS: Creatinine Urine 186.5 mg/dL
[2023-03-29 10:17] LABS: MALB Creatinine Ratio 6.1 mg/g (0-30); Microalbumin Urine Random 11.3 mg/L (0-16.7)
[2023-03-29 11:17] LABS: Band Neutrophils Percent 17 % (0-6); Basophils Absolute Manual 0.02 K/mm3 (0.0-0.1); Basophils Percent Manual 1 % (0-1); Eosinophils Absolute Manual 0.11 K/mm3 (0.02-0.5); Eosinophils Percent Manual 4 % (0-4); Lymphocytes Absolute Manual 0.11 K/mm3 (1.1-4.5); Monocytes Absolute Manual 0.33 K/mm3 (0.1-0.90); Monocytes Percent Manual 12 % (3-9); Neutrophils Absolute Manual 2.21 K/mm3 (1.7-7.2); Neutrophils Percent Manual 62 % (46-73); Platelet Estimate Adequate (Adequate); Poikilocytosis 1+ (NORMAL); Schistocytes Rare (NORMAL); Total Cells Counted 100
[2023-03-29 11:18] LABS: Anisocytosis 1+ (NORMAL); Ovalocytes 1+ (NORMAL)
[2023-04-01 12:13] LABS: Tacrolimus Prograf 9.7 mcg/L
[2023-04-10 09:21] LABS: Basophils Percent Auto 0.7 % (0.2-1.2); Eosinophils Absolute Auto 0.1 K/mm3 (0-0.3); Eosinophils Percent Auto 2.6 % (0-4.4); Hematocrit 38.6 % (37.0-47.0); Hemoglobin 13.3 g/dL (12.0-15.0); Immature Granulocyte Absolute 0.07 K/mm3 (0.00-0.031); Immature Granulocyte Percent A 1.3 % (0-0.5); Lymphocytes Absolute Auto 0.37 K/mm3 (0.9-3.2); Lymphocytes Percent Auto 6.9 % (18.3-44.2); Mean Corpuscular HGB Conc 34.5 g/dl (32-36); Mean Corpuscular Hemoglobin 38.1 pg (26-34); Mean Corpuscular Volume 110.6 fl (80-100); Mean Platelet Volume 11.1 fl (7.4-10.4); Monocytes Absolute Auto 0.9 K/mm3 (0.1-0.6); Monocytes Percent Auto 16.3 % (2.6-8.5); Neutrophils Absolute Auto 3.9 K/mm3 (1.3-6.7); Neutrophils Percent Auto 72.2 % (45.5-73.1); Platelet Count Result 178 k/mm3 (150-375); Red Blood Count 3.49 M/mm3 (4.2-5.4); Red Cell Distribution Width 15.7 % (11.5-14.5); White Blood Count 5.4 K/mm3 (4.5-10.0)
[2023-04-10 09:33] LABS: Albumin Level 4.2 g/dL (3.5-5.1); Anion Gap 11 mmol/L (8-16); Blood Urea Nitrogen 29 mg/dL (7-17); Calcium 10.2 mg/dL (8.4-10.2); Carbon Dioxide 20 mmol/L (22-30); Chloride 104 mmol/L (98-107); Estimated Glomerular Filt Rate 27; Glucose 91 mg/dL (65-110); Phosphorus 3.6 mg/dL (2.5-4.5); Potassium 3.6 mmol/L (3.4-5.0); Sodium 135 mmol/L (137-145)
[2023-04-12 15:30] LABS: Tacrolimus Prograf 10.1 mcg/L
== END 2023-04-24 23:59 | disposition home or self-care (01) ==
LOC: ANHLAB 08:28
PROVIDERS: Visit Provider Internal Medicine Nephrology
DX: N20.0 Calculus of kidney (principal)
CPT/HCPCS: 36415; 80069; 80197; 82043; 85025; 87799

== ENCOUNTER 2023-07-28 08:31 | Outpatient (RCR) | payer MEDICARE, MEDICAID, SELFPAY ==
[2023-05-02 08:58] LABS: Basophils Percent Auto 0.5 % (0.2-1.2); Eosinophils Absolute Auto 0.1 K/mm3 (0-0.3); Eosinophils Percent Auto 1.3 % (0-4.4); Hematocrit 35.3 % (37.0-47.0); Hemoglobin 11.9 g/dL (12.0-15.0); Immature Granulocyte Absolute 0.07 K/mm3 (0.00-0.031); Immature Granulocyte Percent A 1.9 % (0-0.5); Lymphocytes Absolute Auto 0.14 K/mm3 (0.9-3.2); Lymphocytes Percent Auto 3.7 % (18.3-44.2); Mean Corpuscular HGB Conc 33.7 g/dl (32-36); Mean Corpuscular Hemoglobin 37.8 pg (26-34); Mean Corpuscular Volume 112.1 fl (80-100); Mean Platelet Volume 10.5 fl (7.4-10.4); Monocytes Absolute Auto 0.7 K/mm3 (0.1-0.6); Monocytes Percent Auto 17.3 % (2.6-8.5); Neutrophils Absolute Auto 2.8 K/mm3 (1.3-6.7); Neutrophils Percent Auto 75.3 % (45.5-73.1); Platelet Count Result 143 k/mm3 (150-375); Red Blood Count 3.15 M/mm3 (4.2-5.4); White Blood Count 3.8 K/mm3 (4.5-10.0)
[2023-05-02 09:04] LABS: Creatinine Urine 95.6 mg/dL
[2023-05-02 09:05] LABS: Albumin Level 3.7 g/dL (3.5-5.1); Anion Gap 8 mmol/L (8-16); Blood Urea Nitrogen 21 mg/dL (7-17); Calcium 9.6 mg/dL (8.4-10.2); Carbon Dioxide 19 mmol/L (22-30); Chloride 108 mmol/L (98-107); Estimated Glomerular Filt Rate 43; Glucose 85 mg/dL (65-110); Phosphorus 2.6 mg/dL (2.5-4.5); Sodium 135 mmol/L (137-145)
[2023-05-02 09:09] LABS: MALB Creatinine Ratio < 6.3 mg/g (0-30); Microalbumin Urine Random < 6.0 mg/L (0-16.7)
[2023-05-02 09:25] LABS: Anisocytosis 2+ (NORMAL); Hypochromasia 1+ (NORMAL); Platelet Estimate Adequate (Adequate); Poikilocytosis 1+ (NORMAL)
[2023-05-02 09:26] LABS: Schistocytes None Seen (NORMAL); Tear Drop Cells 1+ (NORMAL)
[2023-05-05 00:05] LABS: Tacrolimus Prograf 5.7 mcg/L
[2023-05-17 09:17] LABS: Basophils Percent Auto 0.5 % (0.2-1.2); Eosinophils Percent Auto 1.4 % (0-4.4); Hemoglobin 11.8 g/dL (12.0-15.0); Immature Granulocyte Absolute 0.03 K/mm3 (0.00-0.031); Immature Granulocyte Percent A 1.4 % (0-0.5); Lymphocytes Absolute Auto 0.13 K/mm3 (0.9-3.2); Mean Corpuscular HGB Conc 32.8 g/dl (32-36); Mean Corpuscular Hemoglobin 35.8 pg (26-34); Mean Corpuscular Volume 109.1 fl (80-100); Mean Platelet Volume 10.6 fl (7.4-10.4); Monocytes Absolute Auto 0.4 K/mm3 (0.1-0.6); Monocytes Percent Auto 17.7 % (2.6-8.5); Neutrophils Absolute Auto 1.6 K/mm3 (1.3-6.7); Platelet Count Result 146 k/mm3 (150-375); Red Cell Distribution Width 14.4 % (11.5-14.5); White Blood Count 2.2 K/mm3 (4.5-10.0)
[2023-05-17 09:45] LABS: Burr Cells 1+ (NORMAL); Platelet Estimate Adequate (Adequate); Poikilocytosis 1+ (NORMAL); Schistocytes None Seen (NORMAL)
[2023-05-17 09:50] LABS: Albumin Level 3.6 g/dL (3.5-5.1); Anion Gap 10 mmol/L (8-16); Blood Urea Nitrogen 16 mg/dL (7-17); Calcium 9.5 mg/dL (8.4-10.2); Carbon Dioxide 18 mmol/L (22-30); Chloride 110 mmol/L (98-107); Estimated Glomerular Filt Rate 46; Glucose 110 mg/dL (65-110); Phosphorus 2.8 mg/dL (2.5-4.5); Potassium 3.9 mmol/L (3.4-5.0); Sodium 138 mmol/L (137-145)
[2023-05-17 10:14] LABS: Creatinine Urine 158.8 mg/dL
[2023-05-17 10:18] LABS: MALB Creatinine Ratio 10.7 mg/g (0-30)
[2023-05-20 06:07] LABS: Tacrolimus Prograf 6.4 mcg/L
[2023-05-29 09:38] LABS: Basophils Percent Auto 0.3 % (0.2-1.2); Eosinophils Percent Auto 0.3 % (0-4.4); Hematocrit 35.3 % (37.0-47.0); Hemoglobin 11.5 g/dL (12.0-15.0); Immature Granulocyte Absolute 0.03 K/mm3 (0.00-0.031); Immature Platelet Fraction Pct 5.4 % (0.9-11.2); Lymphocytes Absolute Auto 0.17 K/mm3 (0.9-3.2); Lymphocytes Percent Auto 5.7 % (18.3-44.2); Mean Corpuscular HGB Conc 32.6 g/dl (32-36); Mean Corpuscular Hemoglobin 34.4 pg (26-34); Mean Corpuscular Volume 105.7 fl (80-100); Mean Platelet Volume 11.5 fl (7.4-10.4); Monocytes Absolute Auto 0.3 K/mm3 (0.1-0.6); Monocytes Percent Auto 11.1 % (2.6-8.5); Neutrophils Absolute Auto 2.4 K/mm3 (1.3-6.7); Neutrophils Percent Auto 81.6 % (45.5-73.1); Platelet Count Result 103 k/mm3 (150-375); Red Blood Count 3.34 M/mm3 (4.2-5.4); Red Cell Distribution Width 14.4 % (11.5-14.5)
[2023-05-29 10:07] LABS: Albumin Level 3.6 g/dL (3.5-5.1); Blood Urea Nitrogen 26 mg/dL (7-17); Calcium 8.9 mg/dL (8.4-10.2); Carbon Dioxide 18 mmol/L (22-30); Chloride 107 mmol/L (98-107); Estimated Glomerular Filt Rate 34; Glucose 86 mg/dL (65-110); Potassium 4.1 mmol/L (3.4-5.0)
[2023-05-29 10:11] LABS: Anion Gap 10 mmol/L (8-16); Sodium 135 mmol/L (137-145)
[2023-05-29 10:30] LABS: Microalbumin Urine Random 20.6 mg/L (0-16.7)
[2023-05-29 10:32] LABS: MALB Creatinine Ratio 20.6 mg/g (0-30)
[2023-05-29 10:34] LABS: Anisocytosis 1+ (NORMAL); Burr Cells 2+ (NORMAL); Poikilocytosis 1+ (NORMAL); Schistocytes None Seen (NORMAL)
[2023-05-31 14:37] LABS: Tacrolimus Prograf 9.8 mcg/L
[2023-06-13 09:46] LABS: Eosinophils Percent Auto 1.4 % (0-4.4); Hemoglobin 9.8 g/dL (12.0-15.0); Immature Granulocyte Absolute 0.04 K/mm3 (0.00-0.031); Immature Granulocyte Percent A 1.8 % (0-0.5); Lymphocytes Percent Auto 4.6 % (18.3-44.2); Mean Corpuscular HGB Conc 32.7 g/dl (32-36); Mean Corpuscular Hemoglobin 33.8 pg (26-34); Mean Corpuscular Volume 103.4 fl (80-100); Monocytes Absolute Auto 0.2 K/mm3 (0.1-0.6); Monocytes Percent Auto 10.1 % (2.6-8.5); Neutrophils Absolute Auto 1.8 K/mm3 (1.3-6.7); Neutrophils Percent Auto 82.1 % (45.5-73.1); Platelet Count Result 129 k/mm3 (150-375); Red Cell Distribution Width 14.8 % (11.5-14.5); White Blood Count 2.2 K/mm3 (4.5-10.0)
[2023-06-13 09:59] LABS: Albumin Level 3.6 g/dL (3.5-5.1); Anion Gap 9 mmol/L (8-16); Blood Urea Nitrogen 25 mg/dL (7-17); Calcium 8.9 mg/dL (8.4-10.2); Carbon Dioxide 17 mmol/L (22-30); Chloride 107 mmol/L (98-107); Estimated Glomerular Filt Rate 23; Glucose 96 mg/dL (65-110); Phosphorus 2.8 mg/dL (2.5-4.5); Sodium 133 mmol/L (137-145)
[2023-06-13 10:27] LABS: Creatinine Urine 218.6 mg/dL
[2023-06-13 10:32] LABS: MALB Creatinine Ratio 32.4 mg/g (0-30); Microalbumin Urine Random 70.9 mg/L (0-16.7)
[2023-06-13 12:40] LABS: Poikilocytosis 2+ (NORMAL)
[2023-06-13 12:41] LABS: Burr Cells 1+ (NORMAL); Ovalocytes 1+ (NORMAL); Schistocytes None Seen (NORMAL)
[2023-06-16 01:14] LABS: Tacrolimus Prograf 7.7 mcg/L
[2023-06-30 09:30] LABS: Hematocrit 26.7 % (37.0-47.0); Hemoglobin 9.4 g/dL (12.0-15.0); Immature Platelet Fraction Pct 4.3 % (0.9-11.2); Mean Corpuscular HGB Conc 35.2 g/dl (32-36); Mean Corpuscular Volume 102.3 fl (80-100); Mean Platelet Volume 10.2 fl (7.4-10.4); Platelet Count Result 152 k/mm3 (150-375); Red Blood Count 2.61 M/mm3 (4.2-5.4); Red Cell Distribution Width 17.9 % (11.5-14.5)
[2023-06-30 09:41] LABS: Albumin Level 3.8 g/dL (3.5-5.1); Anion Gap 8 mmol/L (8-16); Blood Urea Nitrogen 24 mg/dL (7-17); Carbon Dioxide 17 mmol/L (22-30); Chloride 110 mmol/L (98-107); Estimated Glomerular Filt Rate 30; Glucose 93 mg/dL (65-110); Phosphorus 2.6 mg/dL (2.5-4.5); Potassium 4.2 mmol/L (3.4-5.0); Sodium 135 mmol/L (137-145)
[2023-06-30 10:59] LABS: Creatinine Urine 139.7 mg/dL
[2023-06-30 11:03] LABS: MALB Creatinine Ratio 24.5 mg/g (0-30); Microalbumin Urine Random 34.2 mg/L (0-16.7)
[2023-06-30 11:04] LABS: White Blood Count 1.7 K/mm3 (4.5-10.0)
[2023-06-30 13:25] LABS: Band Neutrophils Percent 4 % (0-6); Neutrophils Absolute Manual 1.49 K/mm3 (1.7-7.2); Neutrophils Percent Manual 84 % (46-73); Platelet Estimate Adequate (Adequate); Schistocytes None Seen (NORMAL); Total Cells Counted 100
[2023-07-03 08:43] LABS: Tacrolimus Prograf 4.5 mcg/L
[2023-07-14 10:23] LABS: Hemoglobin 9.6 g/dL (12.0-15.0); Immature Platelet Fraction Pct 5.3 % (0.9-11.2); Mean Corpuscular Hemoglobin 34.3 pg (26-34); Mean Corpuscular Volume 107.1 fl (80-100); Mean Platelet Volume 11.1 fl (7.4-10.4); Platelet Count Result 139 k/mm3 (150-375); Red Cell Distribution Width 18.6 % (11.5-14.5)
[2023-07-14 10:43] LABS: Albumin Level 3.5 g/dL (3.5-5.1); Anion Gap 6 mmol/L (8-16); Blood Urea Nitrogen 22 mg/dL (7-17); Calcium 8.7 mg/dL (8.4-10.2); Carbon Dioxide 21 mmol/L (22-30); Chloride 110 mmol/L (98-107); Estimated Glomerular Filt Rate 30; Glucose 86 mg/dL (65-110); Phosphorus 3.5 mg/dL (2.5-4.5); Sodium 137 mmol/L (137-145)
[2023-07-14 11:32] LABS: Creatinine Urine 143.1 mg/dL; Microalbumin Urine Random 31.5 mg/L (0-16.7)
[2023-07-14 14:33] LABS: White Blood Count 1.7 K/mm3 (4.5-10.0)
[2023-07-14 14:34] LABS: Band Neutrophils Percent 3 % (0-6); Eosinophils Absolute Manual 0.03 K/mm3 (0.02-0.5); Eosinophils Percent Manual 2 % (0-4); Lymphocytes Absolute Manual 0.35 K/mm3 (1.1-4.5); Lymphocytes Percent Manual 21 % (18-44); Monocytes Absolute Manual 0.32 K/mm3 (0.1-0.90); Monocytes Percent Manual 19 % (3-9); Neutrophils Absolute Manual 0.98 K/mm3 (1.7-7.2); Neutrophils Percent Manual 55 % (46-73); Total Cells Counted 100
[2023-07-14 14:37] LABS: Ovalocytes 1+ (NORMAL)
[2023-07-14 14:38] LABS: Poikilocytosis 1+ (NORMAL); Schistocytes None Seen (NORMAL)
[2023-07-17 06:41] LABS: Tacrolimus Prograf 5.5 mcg/L
[2023-07-28 09:20] LABS: Basophils Percent Auto 0.4 % (0.2-1.2); Eosinophils Percent Auto 0.8 % (0-4.4); Hematocrit 31.8 % (37.0-47.0); Hemoglobin 10.2 g/dL (12.0-15.0); Immature Granulocyte Absolute 0.05 K/mm3 (0.00-0.031); Immature Granulocyte Percent A 2.1 % (0-0.5); Immature Platelet Fraction Pct 6.3 % (0.9-11.2); Lymphocytes Absolute Auto 0.52 K/mm3 (0.9-3.2); Mean Corpuscular HGB Conc 32.1 g/dl (32-36); Mean Corpuscular Hemoglobin 34.8 pg (26-34); Mean Corpuscular Volume 108.5 fl (80-100); Mean Platelet Volume 11.3 fl (7.4-10.4); Monocytes Absolute Auto 0.4 K/mm3 (0.1-0.6); Monocytes Percent Auto 17.8 % (2.6-8.5); Neutrophils Absolute Auto 1.3 K/mm3 (1.3-6.7); Neutrophils Percent Auto 56.9 % (45.5-73.1); Platelet Count Result 101 k/mm3 (150-375); Red Blood Count 2.93 M/mm3 (4.2-5.4); Red Cell Distribution Width 16.5 % (11.5-14.5); White Blood Count 2.4 K/mm3 (4.5-10.0)
[2023-07-28 09:33] LABS: Albumin Level 3.7 g/dL (3.5-5.1); Anion Gap 9 mmol/L (8-16); Blood Urea Nitrogen 27 mg/dL (7-17); Calcium 9.2 mg/dL (8.4-10.2); Carbon Dioxide 17 mmol/L (22-30); Chloride 110 mmol/L (98-107); Estimated Glomerular Filt Rate 42; Glucose 87 mg/dL (65-110); Phosphorus 3.3 mg/dL (2.5-4.5); Potassium 3.8 mmol/L (3.4-5.0); Sodium 136 mmol/L (137-145)
[2023-07-28 09:52] LABS: Creatinine Urine 70.5 mg/dL
[2023-07-28 09:56] LABS: MALB Creatinine Ratio 17.9 mg/g (0-30); Microalbumin Urine Random 12.6 mg/L (0-16.7)
[2023-08-01 04:56] LABS: Tacrolimus Prograf 3.3 mcg/L
== END 2023-07-31 23:59 | disposition home or self-care (01) ==
LOC: ANHLAB 08:31
PROVIDERS: Visit Provider Internal Medicine Nephrology
DX: Z94.0 Kidney transplant status (principal)
CPT/HCPCS: 36415; 80069; 80197; 82043; 85025; 85055; 87799

== ENCOUNTER 2023-09-13 08:15 | Outpatient (RCR) | payer MEDICARE, MEDICAID, SELFPAY ==
[2023-08-28 09:11] LABS: Basophils Percent Auto 0.3 % (0.2-1.2); Eosinophils Percent Auto 1.3 % (0-4.4); Hematocrit 35.4 % (37.0-47.0); Hemoglobin 11.9 g/dL (12.0-15.0); Immature Granulocyte Absolute 0.01 K/mm3 (0.00-0.031); Immature Granulocyte Percent A 0.3 % (0-0.5); Lymphocytes Absolute Auto 0.92 K/mm3 (0.9-3.2); Mean Corpuscular HGB Conc 33.6 g/dl (32-36); Mean Corpuscular Hemoglobin 34.3 pg (26-34); Mean Platelet Volume 10.1 fl (7.4-10.4); Monocytes Absolute Auto 0.5 K/mm3 (0.1-0.6); Monocytes Percent Auto 15.8 % (2.6-8.5); Neutrophils Absolute Auto 1.5 K/mm3 (1.3-6.7); Neutrophils Percent Auto 51.3 % (45.5-73.1); Platelet Count Result 121 k/mm3 (150-375); Red Blood Count 3.47 M/mm3 (4.2-5.4); Red Cell Distribution Width 12.7 % (11.5-14.5)
[2023-08-28 09:36] LABS: Albumin Level 3.6 g/dL (3.5-5.1); Anion Gap 7 mmol/L (8-16); Blood Urea Nitrogen 25 mg/dL (7-17); Calcium 9.6 mg/dL (8.4-10.2); Carbon Dioxide 18 mmol/L (22-30); Chloride 110 mmol/L (98-107); Estimated Glomerular Filt Rate 34; Glucose 97 mg/dL (65-110); Phosphorus 3.8 mg/dL (2.5-4.5); Potassium 3.9 mmol/L (3.4-5.0); Sodium 135 mmol/L (137-145)
[2023-08-28 09:58] LABS: Creatinine Urine 219.6 mg/dL
[2023-08-28 10:02] LABS: MALB Creatinine Ratio 26.1 mg/g (0-30); Microalbumin Urine Random 57.3 mg/L (0-16.7)
[2023-08-30 13:01] LABS: Tacrolimus Prograf 6.6 mcg/L
[2023-09-13 09:11] LABS: Basophils Percent Auto 0.5 % (0.2-1.2); Hematocrit 39.5 % (37.0-47.0); Hemoglobin 13.2 g/dL (12.0-15.0); Immature Granulocyte Absolute 0.01 K/mm3 (0.00-0.031); Immature Granulocyte Percent A 0.3 % (0-0.5); Lymphocytes Absolute Auto 1.15 K/mm3 (0.9-3.2); Lymphocytes Percent Auto 28.8 % (18.3-44.2); Mean Corpuscular HGB Conc 33.4 g/dl (32-36); Mean Corpuscular Hemoglobin 33.5 pg (26-34); Mean Corpuscular Volume 100.3 fl (80-100); Mean Platelet Volume 10.8 fl (7.4-10.4); Monocytes Absolute Auto 0.7 K/mm3 (0.1-0.6); Monocytes Percent Auto 17.5 % (2.6-8.5); Neutrophils Absolute Auto 2.1 K/mm3 (1.3-6.7); Neutrophils Percent Auto 51.9 % (45.5-73.1); Platelet Count Result 121 k/mm3 (150-375); Red Blood Count 3.94 M/mm3 (4.2-5.4); Red Cell Distribution Width 12.1 % (11.5-14.5)
[2023-09-13 09:24] LABS: Albumin Level 4.1 g/dL (3.5-5.1); Anion Gap 8 mmol/L (8-16); Blood Urea Nitrogen 27 mg/dL (7-17); Calcium 10.5 mg/dL (8.4-10.2); Carbon Dioxide 19 mmol/L (22-30); Chloride 108 mmol/L (98-107); Estimated Glomerular Filt Rate 36; Glucose 97 mg/dL (65-110); Potassium 3.9 mmol/L (3.4-5.0); Sodium 135 mmol/L (137-145)
[2023-09-13 09:50] LABS: Creatinine Urine 95.6 mg/dL
[2023-09-13 09:57] LABS: MALB Creatinine Ratio 18.7 mg/g (0-30); Microalbumin Urine Random 17.9 mg/L (0-16.7)
[2023-09-15 16:40] LABS: Tacrolimus Prograf 5.8 mcg/L
== END 2023-10-03 08:49 | disposition home or self-care (01) ==
LOC: ANHLAB 08:15
PROVIDERS: Visit Provider Internal Medicine Nephrology
DX: Z94.0 Kidney transplant status (principal)
CPT/HCPCS: 36415; 80069; 80197; 82043; 85025; 87799

== ENCOUNTER 2023-11-21 08:19 | Outpatient (RCR) | payer MEDICARE, MEDICAID, SELFPAY ==
[2023-10-03 09:33] LABS: Basophils Percent Auto 0.4 % (0.2-1.2); Eosinophils Absolute Auto 0.1 K/mm3 (0-0.3); Eosinophils Percent Auto 1.2 % (0-4.4); Hematocrit 40.5 % (37.0-47.0); Hemoglobin 13.3 g/dL (12.0-15.0); Immature Granulocyte Absolute 0.02 K/mm3 (0.00-0.031); Immature Granulocyte Percent A 0.4 % (0-0.5); Immature Platelet Fraction Pct 4.8 % (0.9-11.2); Lymphocytes Absolute Auto 1.56 K/mm3 (0.9-3.2); Lymphocytes Percent Auto 30.7 % (18.3-44.2); Mean Corpuscular HGB Conc 32.8 g/dl (32-36); Mean Corpuscular Hemoglobin 32.8 pg (26-34); Mean Platelet Volume 10.7 fl (7.4-10.4); Monocytes Absolute Auto 0.7 K/mm3 (0.1-0.6); Monocytes Percent Auto 13.8 % (2.6-8.5); Neutrophils Absolute Auto 2.7 K/mm3 (1.3-6.7); Neutrophils Percent Auto 53.5 % (45.5-73.1); Platelet Count Result 121 k/mm3 (150-375); Red Blood Count 4.05 M/mm3 (4.2-5.4); Red Cell Distribution Width 11.9 % (11.5-14.5); White Blood Count 5.1 K/mm3 (4.5-10.0)
[2023-10-03 09:45] LABS: Albumin Level 3.9 g/dL (3.5-5.1); Anion Gap 7 mmol/L (8-16); Blood Urea Nitrogen 34 mg/dL (7-17); Calcium 9.5 mg/dL (8.4-10.2); Carbon Dioxide 20 mmol/L (22-30); Chloride 109 mmol/L (98-107); Estimated Glomerular Filt Rate 34; Glucose 82 mg/dL (65-110); Phosphorus 2.5 mg/dL (2.5-4.5); Sodium 136 mmol/L (137-145)
[2023-10-03 09:56] LABS: Creatinine Urine 96.2 mg/dL
[2023-10-05 16:00] LABS: Tacrolimus Prograf 9.3 mcg/L
[2023-11-02 10:18] LABS: Basophils Percent Auto 0.4 % (0.2-1.2); Eosinophils Absolute Auto 0.1 K/mm3 (0-0.3); Eosinophils Percent Auto 1.5 % (0-4.4); Hematocrit 39.5 % (37.0-47.0); Hemoglobin 12.8 g/dL (12.0-15.0); Immature Granulocyte Absolute 0.03 K/mm3 (0.00-0.031); Immature Granulocyte Percent A 0.6 % (0-0.5); Immature Platelet Fraction Pct 4.8 % (0.9-11.2); Lymphocytes Absolute Auto 1.46 K/mm3 (0.9-3.2); Lymphocytes Percent Auto 31.3 % (18.3-44.2); Mean Corpuscular HGB Conc 32.4 g/dl (32-36); Mean Corpuscular Hemoglobin 31.7 pg (26-34); Mean Corpuscular Volume 97.8 fl (80-100); Mean Platelet Volume 10.5 fl (7.4-10.4); Monocytes Absolute Auto 0.6 K/mm3 (0.1-0.6); Monocytes Percent Auto 13.5 % (2.6-8.5); Neutrophils Absolute Auto 2.5 K/mm3 (1.3-6.7); Neutrophils Percent Auto 52.7 % (45.5-73.1); Platelet Count Result 127 k/mm3 (150-375); Red Blood Count 4.04 M/mm3 (4.2-5.4); Red Cell Distribution Width 12.2 % (11.5-14.5); White Blood Count 4.7 K/mm3 (4.5-10.0)
[2023-11-02 10:26] LABS: Creatinine Urine 149.1 mg/dL
[2023-11-02 10:28] LABS: MALB Creatinine Ratio 27.5 mg/g (0-30)
[2023-11-02 10:36] LABS: Anion Gap 8 mmol/L (4-12); Blood Urea Nitrogen 30 mg/dL (7-17); Calcium 9.4 mg/dL (8.4-10.2); Carbon Dioxide 17 mmol/L (22-30); Chloride 112 mmol/L (98-107); Estimated Glomerular Filt Rate 28; Glucose 100 mg/dL (65-110); Phosphorus 3.1 mg/dL (2.5-4.5); Potassium 4.3 mmol/L (3.4-5.0); Sodium 137 mmol/L (137-145)
[2023-11-03 15:14] LABS: Tacrolimus Prograf 4.8 mcg/L
[2023-11-21 09:10] LABS: Basophils Percent Auto 0.3 % (0.2-1.2); Eosinophils Absolute Auto 0.1 K/mm3 (0-0.3); Eosinophils Percent Auto 1.1 % (0-4.4); Hematocrit 40.1 % (37.0-47.0); Hemoglobin 13.7 g/dL (12.0-15.0); Immature Granulocyte Absolute 0.07 K/mm3 (0.00-0.031); Immature Granulocyte Percent A 1.1 % (0-0.5); Lymphocytes Absolute Auto 1.85 K/mm3 (0.9-3.2); Lymphocytes Percent Auto 30.3 % (18.3-44.2); Mean Corpuscular HGB Conc 34.2 g/dl (32-36); Mean Corpuscular Hemoglobin 31.7 pg (26-34); Mean Corpuscular Volume 92.8 fl (80-100); Mean Platelet Volume 10.1 fl (7.4-10.4); Monocytes Absolute Auto 0.8 K/mm3 (0.1-0.6); Monocytes Percent Auto 13.6 % (2.6-8.5); Neutrophils Absolute Auto 3.3 K/mm3 (1.3-6.7); Neutrophils Percent Auto 53.6 % (45.5-73.1); Platelet Count Result 152 k/mm3 (150-375); Red Blood Count 4.32 M/mm3 (4.2-5.4); Red Cell Distribution Width 12.9 % (11.5-14.5); White Blood Count 6.1 K/mm3 (4.5-10.0)
[2023-11-21 09:29] LABS: Albumin Level 4.3 g/dL (3.5-5.1); Anion Gap 9 mmol/L (4-12); Blood Urea Nitrogen 36 mg/dL (7-17); Carbon Dioxide 18 mmol/L (22-30); Chloride 109 mmol/L (98-107); Estimated Glomerular Filt Rate 32; Glucose 110 mg/dL (65-110); Phosphorus 3.1 mg/dL (2.5-4.5); Potassium 3.8 mmol/L (3.4-5.0); Sodium 136 mmol/L (137-145)
[2023-11-21 09:31] LABS: Creatinine Urine 99.2 mg/dL
[2023-11-21 09:36] LABS: MALB Creatinine Ratio 48.4 mg/g (0-30)
[2023-11-22 16:10] LABS: Tacrolimus Prograf 4.8 mcg/L
== END 2024-01-01 23:59 | disposition home or self-care (01) ==
LOC: ANHLAB 08:19
PROVIDERS: Visit Provider Internal Medicine Nephrology
DX: Z94.0 Kidney transplant status (principal)
CPT/HCPCS: 36415; 80069; 80197; 82043; 85025; 85055

== ENCOUNTER 2023-11-21 08:20 | Outpatient (CLI) | payer MEDICARE, MEDICAID, SELFPAY | END 2023-11-21 08:21 | disposition home or self-care (01) | PROVIDERS: Visit Provider Internal Medicine Nephrology | DX: Z94.0 Kidney transplant status (principal) | CPT/HCPCS: 36415; 80069; 80197; 82043; 84550; 85025 ==

== ENCOUNTER 2024-01-10 08:45 | Outpatient (NON) | payer MEDICARE, MEDICAID, SELFPAY ==
[2024-01-10 11:03] LABS: Appearance Urine Clear (Clear); Bacteria Urine None Seen /hpf; Bilirubin Urine Negative (Negative); Blood Urine Negative (Negative); Color Urine Yellow (Yellow); Glucose Urine UA Negative (Negative); Ketones Urine Negative (Negative); Leukocyte Esterase Ur 2+ LEU/UL (Negative); Nitrate Urine Negative (Negative); Non Pathogenic Casts 0-2; Protein Urine 1+ mg/dL (Negative); RBC Urine 0-2 /hpf (0-2); Specific Grav Ur 1.018 (1.001-1.035); Squamous Epithelial Cell Urine Occasional /hpf (Few); Urobilinogen Urine 0.2 mg/dL (<2.0); WBC Urine 51-100 /hpf (0-3); pH Urine 6.5 (5.0-9.0)
[2024-01-10 11:07] LABS: Add Urine Microscopic? YES
== END 2024-01-10 08:46 | disposition home or self-care (01) ==
PROVIDERS: Visit Provider Internal Medicine Nephrology
DX: Z94.0 Kidney transplant status (principal)
CPT/HCPCS: 36415; 80069; 80197; 81001; 82043; 85025; 87086

== ENCOUNTER 2024-03-11 08:40 | Outpatient (RCR) | payer MEDICARE, MEDICAID, SELFPAY ==
[2024-01-10 09:44] LABS: Basophils Percent Auto 0.5 % (0.2-1.2); Eosinophils Absolute Auto 0.1 K/mm3 (0-0.3); Eosinophils Percent Auto 1.6 % (0-4.4); Hematocrit 38.3 % (37.0-47.0); Hemoglobin 12.7 g/dL (12.0-15.0); Immature Granulocyte Absolute 0.05 K/mm3 (0.00-0.031); Immature Granulocyte Percent A 0.9 % (0-0.5); Lymphocytes Percent Auto 28.1 % (18.3-44.2); Mean Corpuscular HGB Conc 33.2 g/dl (32-36); Mean Corpuscular Hemoglobin 30.8 pg (26-34); Mean Platelet Volume 10.1 fl (7.4-10.4); Monocytes Absolute Auto 0.8 K/mm3 (0.1-0.6); Monocytes Percent Auto 14.1 % (2.6-8.5); Neutrophils Absolute Auto 3.1 K/mm3 (1.3-6.7); Neutrophils Percent Auto 54.8 % (45.5-73.1); Platelet Count Result 155 k/mm3 (150-375); Red Blood Count 4.12 M/mm3 (4.2-5.4); Red Cell Distribution Width 13.4 % (11.5-14.5); White Blood Count 5.7 K/mm3 (4.5-10.0)
[2024-01-10 09:44] LABS: Creatinine Urine 120.7 mg/dL
[2024-01-10 09:48] LABS: MALB Creatinine Ratio 83.3 mg/g (0-30); Microalbumin Urine Random 100.6 mg/L (0-16.7)
[2024-01-10 10:02] LABS: Albumin Level 3.9 g/dL (3.5-5.1); Anion Gap 9 mmol/L (4-12); Blood Urea Nitrogen 27 mg/dL (7-17); Calcium 9.4 mg/dL (8.4-10.2); Carbon Dioxide 21 mmol/L (22-30); Chloride 109 mmol/L (98-107); Estimated Glomerular Filt Rate 30; Glucose 98 mg/dL (65-110); Phosphorus 2.6 mg/dL (2.5-4.5); Potassium 3.5 mmol/L (3.4-5.0); Sodium 139 mmol/L (137-145)
[2024-01-16 09:18] LABS: Tacrolimus Prograf 5.4 mcg/L
[2024-03-11 09:33] LABS: Basophils Percent Auto 0.5 % (0.2-1.2); Eosinophils Absolute Auto 0.1 K/mm3 (0-0.3); Eosinophils Percent Auto 1.8 % (0-4.4); Hematocrit 36.4 % (37.0-47.0); Hemoglobin 11.9 g/dL (12.0-15.0); Immature Granulocyte Absolute 0.04 K/mm3 (0.00-0.031); Immature Granulocyte Percent A 0.7 % (0-0.5); Lymphocytes Absolute Auto 1.68 K/mm3 (0.9-3.2); Lymphocytes Percent Auto 30.4 % (18.3-44.2); Mean Corpuscular HGB Conc 32.7 g/dl (32-36); Mean Corpuscular Hemoglobin 30.7 pg (26-34); Mean Corpuscular Volume 94.1 fl (80-100); Mean Platelet Volume 10.5 fl (7.4-10.4); Monocytes Absolute Auto 0.7 K/mm3 (0.1-0.6); Monocytes Percent Auto 12.3 % (2.6-8.5); Neutrophils Percent Auto 54.3 % (45.5-73.1); Platelet Count Result 151 k/mm3 (150-375); Red Blood Count 3.87 M/mm3 (4.2-5.4); Red Cell Distribution Width 13.9 % (11.5-14.5); White Blood Count 5.5 K/mm3 (4.5-10.0)
[2024-03-11 09:49] LABS: Albumin Level 3.8 g/dL (3.5-5.1); Anion Gap 13 mmol/L (4-12); Blood Urea Nitrogen 33 mg/dL (7-17); Calcium 8.6 mg/dL (8.4-10.2); Carbon Dioxide 18 mmol/L (22-30); Chloride 105 mmol/L (98-107); Estimated Glomerular Filt Rate 24; Glucose 99 mg/dL (65-110); Phosphorus 4.2 mg/dL (2.5-4.5); Potassium 3.5 mmol/L (3.4-5.0); Sodium 136 mmol/L (137-145)
[2024-03-11 10:28] LABS: MALB Creatinine Ratio 42.8 mg/g (0-30); Microalbumin Urine Random 47.1 mg/L (0-16.7)
[2024-03-12 16:29] LABS: Tacrolimus Prograf 5.8 mcg/L
== END 2024-04-09 23:59 | disposition home or self-care (01) ==
LOC: ANHLAB 08:40
PROVIDERS: Visit Provider Internal Medicine Nephrology
DX: Z94.0 Kidney transplant status (principal)
CPT/HCPCS: 36415; 80069; 80197; 81001; 82043; 85025; 87086; 87088

== ENCOUNTER 2024-03-20 09:43 | Outpatient (CLI) | payer MEDICARE, MEDICAID, SELFPAY ==
[2024-03-20 10:31] LABS: Albumin Level 3.7 g/dL (3.5-5.1); Anion Gap 9 mmol/L (4-12); Blood Urea Nitrogen 31 mg/dL (7-17); Calcium 9.1 mg/dL (8.4-10.2); Carbon Dioxide 20 mmol/L (22-30); Chloride 107 mmol/L (98-107); Estimated Glomerular Filt Rate 22; Glucose 96 mg/dL (65-110); Phosphorus 3.2 mg/dL (2.5-4.5); Sodium 136 mmol/L (137-145)
[2024-03-20 10:39] LABS: Basophils Percent Auto 0.5 % (0.2-1.2); Eosinophils Absolute Auto 0.1 K/mm3 (0-0.3); Hematocrit 36.7 % (37.0-47.0); Hemoglobin 12.5 g/dL (12.0-15.0); Immature Granulocyte Absolute 0.05 K/mm3 (0.00-0.031); Immature Granulocyte Percent A 1.2 % (0-0.5); Lymphocytes Absolute Auto 1.06 K/mm3 (0.9-3.2); Lymphocytes Percent Auto 26.2 % (18.3-44.2); Mean Corpuscular HGB Conc 34.1 g/dl (32-36); Mean Corpuscular Hemoglobin 31.7 pg (26-34); Mean Corpuscular Volume 93.1 fl (80-100); Mean Platelet Volume 10.1 fl (7.4-10.4); Monocytes Absolute Auto 0.5 K/mm3 (0.1-0.6); Monocytes Percent Auto 12.6 % (2.6-8.5); Neutrophils Absolute Auto 2.3 K/mm3 (1.3-6.7); Neutrophils Percent Auto 57.5 % (45.5-73.1); Platelet Count Result 170 k/mm3 (150-375); Red Blood Count 3.94 M/mm3 (4.2-5.4); Red Cell Distribution Width 13.9 % (11.5-14.5)
[2024-03-20 10:55] LABS: Creatinine Urine 123.7 mg/dL
[2024-03-20 10:58] LABS: Microalbumin Urine Random 116.3 mg/L (0-16.7)
[2024-03-22 08:43] LABS: Tacrolimus Prograf 5.4 mcg/L
== END 2024-03-20 09:44 | disposition home or self-care (01) ==
LOC: ANHLAB 09:51
PROVIDERS: Visit Provider Internal Medicine Nephrology
DX: Z94.0 Kidney transplant status (principal)
CPT/HCPCS: 36415; 80069; 80197; 82043; 85025

== ENCOUNTER 2024-04-18 17:13 | Emergency (ER) | payer MEDICARE, MEDICAID, SELFPAY ==
[2024-04-18 17:24] VITALS: BP 141/84; PULSE 90; RESP 17; TEMP 36.8; O2SAT 100
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
[2024-04-18] MEDS: oxyCODONE HCL (*CRX) 5 MG TAB IR 10 MG PO (23:35)
[2024-04-18 23:49] LABS: Eosinophils Percent Auto 0.9 % (0-4.4); Hematocrit 25.6 % (37.0-47.0); Hemoglobin 8.4 g/dL (12.0-15.0); Immature Granulocyte Percent A 1.5 % (0-0.5); Lymphocytes Percent Auto 24.6 % (18.3-44.2); Mean Corpuscular HGB Conc 32.8 g/dl (32-36); Mean Corpuscular Hemoglobin 31.8 pg (26-34); Mean Platelet Volume 9.4 fl (7.4-10.4); Neutrophils Percent Auto 58.6 % (45.5-73.1); Platelet Count Result 163 k/mm3 (150-375); Red Blood Count 2.64 M/mm3 (4.2-5.4); Red Cell Distribution Width 14.8 % (11.5-14.5); White Blood Count 4.6 K/mm3 (4.5-10.0)
[2024-04-18 23:50] LABS: Basophils Percent Auto 0.4 % (0.2-1.2); Immature Granulocyte Absolute 0.07 K/mm3 (0.00-0.031); Lymphocytes Absolute Auto 1.12 K/mm3 (0.9-3.2); Monocytes Absolute Auto 0.6 K/mm3 (0.1-0.6); Neutrophils Absolute Auto 2.7 K/mm3 (1.3-6.7)
[2024-04-19] LABS: Alanine Aminotransferase 37 U/L (6-35); Albumin Level 3.7 g/dL (3.5-5.1); Alkaline Phosphatase 79 U/L (38-126); Anion Gap 6 mmol/L (4-12); Aspartate Amino Transferase 49 U/L (14-36); Bilirubin,Total 0.5 mg/dL (0.2-1.3); Blood Urea Nitrogen 30 mg/dL (7-17); Calcium 10.3 mg/dL (8.4-10.2); Carbon Dioxide 24 mmol/L (22-30); Chloride 106 mmol/L (98-107); Estimated CRCL calculation 36 ml/min; Estimated Glomerular Filt Rate 24; Glucose 101 mg/dL (65-110); Potassium 4.1 mmol/L (3.4-5.0); Sodium 136 mmol/L (137-145)
[2024-04-19 00:36] VITALS: BP 112/56; PULSE 72; RESP 15; O2SAT 99
== END 2024-04-19 00:39 | disposition home or self-care (01) ==
PROVIDERS: Emergency Provider Physician Assistant
DX: G89.18 Other acute postprocedural pain (principal); R60.0 Localized edema
CPT/HCPCS: 29515; 36415; 80053; 85025; 99283; A9270

== ENCOUNTER 2024-10-10 12:45 | Outpatient (RCR) | payer MEDICARE, MEDICAID, SELFPAY ==
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
--- NOTE | 2024-07-23 11:12 | OPREHPOC ---
Outpatient Therapy Plan of Care This is a Multidisciplinary Plan of Care that may contain components documented by all disciplines (PT, OT, and ST.) PT Problem 1 PT Problem #1 Knowledge Deficit PT Goal 1 Goal / Goal Update Pt will demo good understanding of diagnosis and prognosis Pt will perform HEPs for core and BLE strengthening and flexibility indep Target Visit 12 PT Problem 2 PT Problem #2 Impaired Balance PT Goal 1 Goal / Goal Update 1. Pt will demo Tinetti Assessment score of 21/28 or more indicating reduced risk for fall. 2. Pt will demo single leg standing with at least 1 UE support x 10 seconds or more to improve standing balance and stability. Target Visit 20 PT Problem 3 PT Problem #3 Impaired Range of Motion PT Goal 1 Goal / Goal Update Pt will demo normal active ROM to all tested planes of BLE without pain and discomfort. Target Visit 18 PT Problem 4 PT Problem #4 Impaired Strength PT Goal 1 Goal / Goal Update Pt will demo 5/5 strength to BLEs Target Visit 20 PT Problem 5 PT Problem #5 Impaired Gait PT Goal 1 Goal / Goal Update Pt will demo good gait mechanics on various surfaces and stairs independently with least restrictive AD to improve safe household and community ambulation. Target Visit 20
--- NOTE | 2024-08-22 17:34 | PTOPPROG ---
Assessment and note entered by Adriana Calle, PT Progress Information Assessment Status Progress Diagnosis S82.871D, S92.011D ICD-10 Condition Codes (PT) Pain in right ankle and joints of right foot M25. 571,Difficulty Walking R26.2,Abnormalities of gait and mobility R26.9,Weakness R53.1 Subjective Information Pt recently upgraded her Lasix due to increased swelling to BUE and BLE secondary to Kidney issues . Saw her Surgeon for f/u but did not get the nerve pain pill and customized shoe that she wanted. Reports she found a bigger slip-on slides that belongs to which she can use and fits alright on the swollen foot. Assessment PT Clinical Summary Pt completed 10 therapy sessions today and demos with excellent progress with therapy and has partially met most of established goals. Noted gains in strength, joint mobility, standing balance and endurance reflected in Tinetti Assessment scores, ambulation distance on 2min walk test with 2WW. However she continue to demo swelling to BLE R > L and she is working with MDs on managing edema and reactions to kidney transplant to allow further progress with therapy. Pt will greatly benefit from continued skilled PT interventions to further improve safety with indep ambulation using most appropriate AD on various surfaces with reduced risk for falls and or injuries and to continue to work towards achieving LTGs on her POC. Plan of Care Interventions Check Out for Orthotic/Prosthetic,Electrical Stimulation,Gait Training,Hot Pack/Cold Pack, Intermittent Compression Pump,Manual Therapy,Neuro Re-education,Patient/Caregiver Education, Therapeutic Activities,Therapeutic Exercise,Other Other Interventions IASTM, Taping PT Services Indicated Yes Treatment Frequency and 2x/wk x 12 visits Duration These treatments will address the objective and functional deficits as defined above. The patient will be advanced safely and appropriately in order for the patient to progress towards his/her prior level of function. Additional exercises will be introduced and as well as a comprehensive home exercise program upon discharge, if needed, ?to ensure carryover of functional gains achieved in the clinic. This treatment plan has been reviewed and agreement upon by the patient.
--- NOTE | 2024-10-14 14:41 | PTOPPROG ---
Assessment and note entered by Adriana Calle, PT Progress Information Assessment Status Progress Diagnosis S82.871D, S92.011D ICD-10 Condition Codes (PT) Pain in right ankle and joints of right foot M25. 571,Difficulty Walking R26.2,Abnormalities of gait and mobility R26.9,Weakness R53.1 Subjective Information Had a fall due to sliding out of her w/c, butt on the floor. reports R knee soreness due to trying to get up from the floor. States was trying walking without the walker at home more and more. Assessment PT Clinical Summary Pt received a total of 20 sessions and demos excellent progress with ROM, strength, balance and ambulation. However, pain and swelling to R ankle and foot continue to persist and impacts standing and ambulation tolerance at this time. She also had a recent fall due to improper alignment of the w/c and positioning, denies breaking or hurting anywhere else aside from the knee from trying to get up from the floor, she is interested in training to perform a safer floor recovery technique off of the floor after a fall. Pt also continue to have remaining deficits in balance and ambulation on various surfaces at this time. She will benefit from continued therapy to improve balance, proprioception, posture, endurance and safety in performing functional mobility indep at this time. Plan of Care Interventions Check Out for Orthotic/Prosthetic,Electrical Stimulation,Gait Training,Hot Pack/Cold Pack, Intermittent Compression Pump,Manual Therapy,Neuro Re-education,Patient/Caregiver Education, Therapeutic Activities,Therapeutic Exercise,Other Other Interventions IASTM, Taping PT Services Indicated Yes Treatment Frequency and 1-2x/wk x 12 visits Duration These treatments will address the objective and functional deficits as defined above. The patient will be advanced safely and appropriately in order for the patient to progress towards his/her prior level of function. Additional exercises will be introduced and as well as a comprehensive home exercise program upon discharge, if needed, ?to ensure carryover of functional gains achieved in the clinic. This treatment plan has been reviewed and agreement upon by the patient.
--- NOTE | 2024-10-14 14:42 | OPREHPOC ---
Outpatient Therapy Plan of Care This is a Multidisciplinary Plan of Care that may contain components documented by all disciplines (PT, OT, and ST.) PT Problem 1 PT Problem #1 Knowledge Deficit PT Goal 1 Goal / Goal Update Pt will demo good understanding of diagnosis and prognosis Pt will perform HEPs for core and BLE strengthening and flexibility indep Target Visit 12 Progress Partially Met PT Problem 2 PT Problem #2 Impaired Balance PT Goal 1 Goal / Goal Update 1. Pt will demo Tinetti Assessment score of 21/28 or more indicating reduced risk for fall. -MET 2. Pt will demo single leg standing with at least 1 UE support x 10 seconds or more to improve standing balance and stability. - can weight shift and perform upto 5 sec with definite BUE support Target Visit 20 Progress Partially Met PT Goal 2 Goal / Goal Update 1. Pt will demo single leg standing with at least 1 UE support x 10 seconds or more with 1 UE support to improve standing balance and stability. 2. Pt will perform floor recovery technique indep with SBA and 85% accuracy with very minimal cues for proper sequencing. Target Visit 12 PT Problem 3 PT Problem #3 Impaired Range of Motion PT Goal 1 Goal / Goal Update Pt will demo normal active ROM to all tested planes of BLE without pain and discomfort. - noted swelling and discomfort Target Visit 18 Progress Partially Met PT Problem 4 PT Problem #4 Impaired Strength PT Goal 1 Goal / Goal Update Pt will demo 5/5 strength to BLEs Target Visit 20 Progress Partially Met PT Problem 5 PT Problem #5 Impaired Gait PT Goal 1 Goal / Goal Update Pt will demo good gait mechanics on various surfaces and stairs independently with least restrictive AD to improve safe household and community ambulation. Target Visit 20 Progress Partially Met
== END 2024-10-14 23:59 | disposition home or self-care (01) ==
LOC: ANHHIPT 12:45
DX: S82.871D Displaced pilon fracture of right tibia, subsequent encounter for closed fracture with routine healing (principal); S92.011D Displaced fracture of body of right calcaneus, subsequent encounter for fracture with routine healing
CPT/HCPCS: 97016; 97110; 97112; 97116; 97140; 97161; 97530; 97750

== ENCOUNTER 2024-11-16 10:13 | Outpatient (RCR) | payer MEDICARE, MEDICAID, SELFPAY ==
[2024-08-08 11:25] LABS: Basophils Percent Auto 0.5 % (0.2-1.2); Eosinophils Absolute Auto 0.1 K/mm3 (0-0.3); Eosinophils Percent Auto 1.3 % (0-4.4); Hemoglobin 13.9 g/dL (12.0-15.0); Immature Granulocyte Absolute 0.06 K/mm3 (0.00-0.031); Immature Granulocyte Percent A 0.7 % (0-0.5); Lymphocytes Absolute Auto 3.95 K/mm3 (0.9-3.2); Lymphocytes Percent Auto 48.1 % (18.3-44.2); Mean Corpuscular HGB Conc 33.9 g/dl (32-36); Mean Corpuscular Volume 88.6 fl (80-100); Mean Platelet Volume 10.7 fl (7.4-10.4); Monocytes Absolute Auto 0.9 K/mm3 (0.1-0.6); Monocytes Percent Auto 10.9 % (2.6-8.5); Neutrophils Absolute Auto 3.2 K/mm3 (1.3-6.7); Neutrophils Percent Auto 38.5 % (45.5-73.1); Platelet Count Result 178 k/mm3 (150-375); Red Blood Count 4.63 M/mm3 (4.2-5.4); Red Cell Distribution Width 14.3 % (11.5-14.5); White Blood Count 8.2 K/mm3 (4.5-10.0)
[2024-08-08 11:38] LABS: Albumin Level 3.5 g/dL (3.5-5.1); Anion Gap 11 mmol/L (4-12); Blood Urea Nitrogen 44 mg/dL (7-17); Calcium 8.2 mg/dL (8.4-10.2); Carbon Dioxide 16 mmol/L (22-30); Chloride 109 mmol/L (98-107); Estimated Glomerular Filt Rate 24; Glucose 88 mg/dL (65-110); Potassium 4.1 mmol/L (3.4-5.0); Sodium 136 mmol/L (137-145)
[2024-08-09 16:28] LABS: Tacrolimus Prograf 14.5 mcg/L
[2024-09-11 10:50] LABS: Basophils Percent Auto 0.3 % (0.2-1.2); Eosinophils Absolute Auto 0.1 K/mm3 (0-0.3); Eosinophils Percent Auto 0.7 % (0-4.4); Hematocrit 37.7 % (37.0-47.0); Hemoglobin 12.6 g/dL (12.0-15.0); Immature Granulocyte Absolute 0.06 K/mm3 (0.00-0.031); Immature Granulocyte Percent A 0.9 % (0-0.5); Lymphocytes Percent Auto 38.8 % (18.3-44.2); Mean Corpuscular HGB Conc 33.4 g/dl (32-36); Mean Corpuscular Hemoglobin 30.4 pg (26-34); Mean Corpuscular Volume 90.8 fl (80-100); Mean Platelet Volume 11.2 fl (7.4-10.4); Monocytes Absolute Auto 0.7 K/mm3 (0.1-0.6); Neutrophils Absolute Auto 3.2 K/mm3 (1.3-6.7); Neutrophils Percent Auto 48.3 % (45.5-73.1); Platelet Count Result 184 k/mm3 (150-375); Red Blood Count 4.15 M/mm3 (4.2-5.4); Red Cell Distribution Width 15.9 % (11.5-14.5); White Blood Count 6.7 K/mm3 (4.5-10.0)
[2024-09-11 11:05] LABS: Anion Gap 10 mmol/L (4-12); Blood Urea Nitrogen 32 mg/dL (7-17); Calcium 7.9 mg/dL (8.4-10.2); Carbon Dioxide 23 mmol/L (22-30); Chloride 103 mmol/L (98-107); Estimated Glomerular Filt Rate 27; Glucose 85 mg/dL (65-110); Phosphorus 3.5 mg/dL (2.5-4.5); Potassium 3.6 mmol/L (3.4-5.0); Sodium 136 mmol/L (137-145)
[2024-09-12 14:24] LABS: Tacrolimus Prograf 9.3 mcg/L
[2024-10-30 09:53] LABS: Basophils Absolute Auto 0.1 K/mm3 (0.0-0.1); Basophils Percent Auto 0.6 % (0.2-1.2); Eosinophils Absolute Auto 0.1 K/mm3 (0-0.3); Eosinophils Percent Auto 0.7 % (0-4.4); Hematocrit 38.3 % (37.0-47.0); Hemoglobin 12.7 g/dL (12.0-15.0); Immature Granulocyte Absolute 0.15 K/mm3 (0.00-0.031); Immature Granulocyte Percent A 1.8 % (0-0.5); Lymphocytes Absolute Auto 2.93 K/mm3 (0.9-3.2); Mean Corpuscular HGB Conc 33.2 g/dl (32-36); Mean Corpuscular Hemoglobin 31.8 pg (26-34); Mean Corpuscular Volume 95.8 fl (80-100); Mean Platelet Volume 10.5 fl (7.4-10.4); Monocytes Absolute Auto 0.7 K/mm3 (0.1-0.6); Monocytes Percent Auto 7.9 % (2.6-8.5); Neutrophils Absolute Auto 4.5 K/mm3 (1.3-6.7); Platelet Count Result 204 k/mm3 (150-375); Red Cell Distribution Width 14.8 % (11.5-14.5); White Blood Count 8.4 K/mm3 (4.5-10.0)
[2024-10-30 10:06] LABS: Albumin Level 3.9 g/dL (3.5-5.1); Anion Gap 11 mmol/L (4-12); Blood Urea Nitrogen 26 mg/dL (7-17); Calcium 8.5 mg/dL (8.4-10.2); Carbon Dioxide 20 mmol/L (22-30); Chloride 107 mmol/L (98-107); Estimated Glomerular Filt Rate 21; Glucose 89 mg/dL (65-110); Phosphorus 3.9 mg/dL (2.5-4.5); Potassium 3.7 mmol/L (3.4-5.0); Sodium 138 mmol/L (137-145)
[2024-10-30 10:17] LABS: Creatinine Urine 87.2 mg/dL
[2024-10-30 10:22] LABS: MALB Creatinine Ratio 119.3 mg/g (0-30)
[2024-10-31 16:04] LABS: Tacrolimus Prograf 6.4 mcg/L
[2024-11-16 10:41] LABS: Basophils Percent Auto 0.5 % (0.2-1.2); Eosinophils Absolute Auto 0.1 K/mm3 (0-0.3); Eosinophils Percent Auto 1.2 % (0-4.4); Hematocrit 37.3 % (37.0-47.0); Hemoglobin 12.7 g/dL (12.0-15.0); Immature Granulocyte Percent A 1.7 % (0-0.5); Lymphocytes Absolute Auto 1.93 K/mm3 (0.9-3.2); Lymphocytes Percent Auto 32.2 % (18.3-44.2); Mean Corpuscular Hemoglobin 32.2 pg (26-34); Mean Corpuscular Volume 94.7 fl (80-100); Mean Platelet Volume 10.3 fl (7.4-10.4); Monocytes Absolute Auto 0.6 K/mm3 (0.1-0.6); Monocytes Percent Auto 10.3 % (2.6-8.5); Neutrophils Absolute Auto 3.3 K/mm3 (1.3-6.7); Neutrophils Percent Auto 54.1 % (45.5-73.1); Platelet Count Result 184 k/mm3 (150-375); Red Blood Count 3.94 M/mm3 (4.2-5.4); Red Cell Distribution Width 14.3 % (11.5-14.5)
[2024-11-16 10:52] LABS: Albumin Level 3.9 g/dL (3.5-5.1); Anion Gap 13 mmol/L (4-12); Blood Urea Nitrogen 28 mg/dL (7-17); Calcium 8.5 mg/dL (8.4-10.2); Carbon Dioxide 17 mmol/L (22-30); Chloride 108 mmol/L (98-107); Estimated Glomerular Filt Rate 24; Glucose 104 mg/dL (65-110); Phosphorus 3.9 mg/dL (2.5-4.5); Potassium 3.7 mmol/L (3.4-5.0); Sodium 138 mmol/L (137-145)
[2024-11-16 11:16] LABS: Creatinine Urine 77.5 mg/dL
[2024-11-16 11:21] LABS: MALB Creatinine Ratio 99.6 mg/g (0-30); Microalbumin Urine Random 77.2 mg/L (0-16.7)
[2024-11-18 13:09] LABS: Tacrolimus Prograf 5.8 mcg/L
== END 2024-11-16 23:59 | disposition home or self-care (01) ==
LOC: ANHLAB 10:13
PROVIDERS: Visit Provider Internal Medicine Nephrology
DX: Z94.0 Kidney transplant status (principal)
CPT/HCPCS: 36415; 80069; 80197; 82043; 85025

== ENCOUNTER 2024-12-25 15:30 | Outpatient (RCR) | payer MEDICARE, MEDICAID, SELFPAY ==
--- NOTE | 2024-10-22 16:04 | PCPTNOTE ---
Pt called at the time of appointment to cancel, no reason provided.
--- NOTE | 2024-11-01 11:40 | PTOPEVDC ---
Assessment and note entered by Adriana Calle, PT Thank you for referring Mily Oliveros to [facility].? An evaluation has been completed. No further treatment is needed. Progress Information Assessment Status Progress - Pt Not Present Diagnosis S82.871D, S92.011D ICD-10 Condition Codes (PT) Pain in right ankle and joints of right foot M25. 571,Difficulty Walking R26.2,Abnormalities of gait and mobility R26.9,Weakness R53.1 Subjective Information Had a fall due to sliding out of her w/c, butt on the floor. reports R knee soreness due to trying to get up from the floor. States was trying walking without the walker at home more and more. Reported Pain Level Pain Score 6: Self Report Pain Score 6: Self Report Additional Pain Score Comments big toe pain 11/23 Assessment PT Clinical Summary Pt received a total of 20 sessions and demos excellent progress with ROM, strength, balance and ambulation. However, pain and swelling to R ankle and foot continue to persist and impacts standing and ambulation tolerance at this time. She also had a recent fall due to improper alignment of the w/c and positioning, denies breaking or hurting anywhere else aside from the knee from trying to get up from the floor, she is interested in training to perform a safer floor recovery technique off of the floor after a fall. Pt also continue to have remaining deficits in balance and ambulation on various surfaces at this time. She will benefit from continued therapy to improve balance, proprioception, posture, endurance and safety in performing functional mobility and ambulation indep at this time. Plan of Care Interventions Check Out for Orthotic/Prosthetic,Electrical Stimulation,Gait Training,Hot Pack/Cold Pack, Intermittent Compression Pump,Manual Therapy,Neuro Re-education,Patient/Caregiver Education, Therapeutic Activities,Therapeutic Exercise,Other Other Interventions IASTM, Taping PT Services Indicated Yes Treatment Frequency and 1-2x/wk x 12 visits Duration
--- NOTE | 2024-11-14 17:48 | PTOPPROG ---
Assessment and note entered by Adriana Calle, PT Progress Information Assessment Status Progress Diagnosis S82.871D, S92.011D ICD-10 Condition Codes (PT) Pain in right ankle and joints of right foot M25. 571,Difficulty Walking R26.2,Abnormalities of gait and mobility R26.9,Weakness R53.1 Subjective Information Pt reports feeling 90% better overall, walking and standing much better. Assessment PT Clinical Summary PT received 28 treatment sessions and demos excellent progress with therapy. LEFS score improved from 40 to 78%, Tinetti Assessment score improved to 21/28 which indicate she has gained strength, stability and balance. Recently received a knee offloading orthosis to address knee pain and excessive recurvatum; as well as a personal TENS unit for indep pain management. She will benefit from additional treatment sessions for further gait training and TENS unit application practice to improve safety and reduce risk for falls and or further injuries. Plan of Care Interventions Check Out for Orthotic/Prosthetic,Electrical Stimulation,Gait Training,Hot Pack/Cold Pack, Intermittent Compression Pump,Manual Therapy,Neuro Re-education,Patient/Caregiver Education, Therapeutic Activities,Therapeutic Exercise,Other Other Interventions IASTM, Taping PT Services Indicated Yes Treatment Frequency and 1-2x/wk x 4 visits Duration These treatments will address the objective and functional deficits as defined above. The patient will be advanced safely and appropriately in order for the patient to progress towards his/her prior level of function. Additional exercises will be introduced and as well as a comprehensive home exercise program upon discharge, if needed, ?to ensure carryover of functional gains achieved in the clinic. This treatment plan has been reviewed and agreement upon by the patient.
--- NOTE | 2024-11-14 17:49 | OPREHPOC ---
Outpatient Therapy Plan of Care This is a Multidisciplinary Plan of Care that may contain components documented by all disciplines (PT, OT, and ST.) PT Problem 1 PT Problem #1 Knowledge Deficit PT Goal 1 Goal / Goal Update Pt will demo good understanding of diagnosis and prognosis Pt will perform HEPs for core and BLE strengthening and flexibility indep Target Visit 12 Progress Partially Met PT Problem 2 PT Problem #2 Impaired Balance PT Goal 1 Goal / Goal Update 1. Pt will demo Tinetti Assessment score of 21/28 or more indicating reduced risk for fall. -MET 2. Pt will demo single leg standing with at least 1 UE support x 10 seconds or more to improve standing balance and stability. - can weight shift and perform upto 5 sec with definite BUE support Target Visit 20 Progress Met PT Goal 2 Goal / Goal Update update 11/14/2024: 1. Pt will demo single leg standing with at least 1 UE support x 10 seconds or more with 1 UE support to improve standing balance and stability. - GOAL MET 2. Pt will perform floor recovery technique indep with SBA and 85% accuracy with very minimal cues for proper sequencing. -not assessed Target Visit 12 PT Problem 3 PT Problem #3 Impaired Range of Motion PT Goal 1 Goal / Goal Update Pt will demo normal active ROM to all tested planes of BLE without pain and discomfort. Target Visit 18 Progress Met PT Problem 4 PT Problem #4 Impaired Strength PT Goal 1 Goal / Goal Update Pt will demo 5/5 strength to BLEs Target Visit 20 Progress Partially Met PT Goal 2 Goal / Goal Update update 11/14/2024: 4/5 strength to R ankle muscles grossly PT Problem 5 PT Problem #5 Impaired Gait PT Goal 1 Goal / Goal Update Pt will demo good gait mechanics on various surfaces and stairs independently with least restrictive AD to improve safe household and community ambulation. Target Visit 20 Progress Partially Met PT Goal 2 Goal / Goal Update update 11/14/2024: Pt will demo normalized gait mechanics using the knee brace and cane wearing supportive shoes with appropriate orthosis on various surfaces and stairs to improve safety with ambulation.
--- NOTE | 2024-12-11 15:50 | PCPTNOTE ---
Patient did not show up for scheduled appointment this date.
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
== END 2024-12-26 09:14 | disposition home or self-care (01) ==
LOC: ANHHIPT 15:30
DX: S82.871D Displaced pilon fracture of right tibia, subsequent encounter for closed fracture with routine healing (principal); S92.011D Displaced fracture of body of right calcaneus, subsequent encounter for fracture with routine healing
CPT/HCPCS: 97014; 97016; 97110; 97116; 97140; 97530; 97750; G0283

== ENCOUNTER 2025-03-05 08:38 | Outpatient (RCR) | payer MEDICARE, MEDICAID, SELFPAY ==
[2024-12-24 09:37] LABS: Hematocrit 37.2 % (37.0-47.0); Hemoglobin 12.6 g/dL (12.0-15.0); Immature Granulocyte Percent A 1.2 % (0-0.5); Lymphocytes Absolute Auto 1.79 K/mm3 (0.9-3.2); Mean Corpuscular HGB Conc 33.9 g/dl (32-36); Mean Corpuscular Hemoglobin 32.5 pg (26-34); Mean Corpuscular Volume 95.9 fl (80-100); Nucleated Red Blood Cells Absolute Auto 0.000 K/mm3 (0.0-0.012); Nucleated Red Blood Cells Perc 0.0 % (0.0-0.2); Platelet Count Result 170 k/mm3 (150-375); Red Blood Count 3.88 M/mm3 (4.2-5.4); White Blood Count 4.9 K/mm3 (4.5-10.0)
[2024-12-24 09:53] LABS: Albumin Level 3.7 g/dL (3.5-5.1); Anion Gap 8 mmol/L (4-12); Blood Urea Nitrogen 24 mg/dL (7-17); Calcium 8.7 mg/dL (8.4-10.2); Carbon Dioxide 17 mmol/L (22-30); Chloride 109 mmol/L (98-107); Estimated Glomerular Filt Rate 26; Glucose 91 mg/dL (65-110); Potassium 3.8 mmol/L (3.4-5.0); Sodium 134 mmol/L (137-145)
[2024-12-24 10:22] LABS: MALB Creatinine Ratio 339.0 mg/g (0-30)
[2024-12-25 14:43] LABS: Tacrolimus Prograf. 5.7 mcg/L
[2025-03-05 09:03] LABS: Hematocrit 38.5 % (37.0-47.0); Hemoglobin 13.1 g/dL (12.0-15.0); Immature Granulocyte Percent A 1.4 % (0-0.5); Lymphocytes Absolute Auto 2.18 K/mm3 (0.9-3.2); Mean Corpuscular HGB Conc 34.0 g/dl (32-36); Mean Corpuscular Hemoglobin 33.3 pg (26-34); Mean Corpuscular Volume 98.0 fl (80-100); Nucleated Red Blood Cells Absolute Auto 0.000 K/mm3 (0.0-0.012); Nucleated Red Blood Cells Perc 0.0 % (0.0-0.2); Platelet Count Result 165 k/mm3 (150-375); Red Blood Count 3.93 M/mm3 (4.2-5.4); White Blood Count 6.6 K/mm3 (4.5-10.0)
[2025-03-05 09:27] LABS: Albumin Level 3.8 g/dL (3.5-5.1); Anion Gap 7 mmol/L (4-12); Blood Urea Nitrogen 28 mg/dL (7-17); Calcium 8.4 mg/dL (8.4-10.2); Carbon Dioxide 22 mmol/L (22-30); Chloride 106 mmol/L (98-107); Estimated Glomerular Filt Rate 19; Glucose 87 mg/dL (65-110); Potassium 4.0 mmol/L (3.4-5.0); Sodium 135 mmol/L (137-145)
[2025-03-05 09:58] LABS: MALB Creatinine Ratio 97.4 mg/g (0-30)
[2025-03-08 14:08] LABS: Tacrolimus (FK506), Blood 9.3 ng/mL (5.0-20.0)
== END 2025-03-24 23:59 | disposition home or self-care (01) ==
LOC: ANHLAB 08:38
PROVIDERS: Visit Provider Internal Medicine Nephrology
DX: Z48.22 Encounter for aftercare following kidney transplant (principal); Z94.0 Kidney transplant status
CPT/HCPCS: 36415; 80069; 80197; 81001; 82043; 85025

== ENCOUNTER 2025-03-05 13:42 | Outpatient (NON) | payer MEDICARE, MEDICAID, SELFPAY ==
--- OUTSIDE RECORDS SUMMARY | 2025-03-05 14:12 | XMS_ITS | Encounter Summary ---
Author Organization [facility] Address [address] [place] [address] Phone Care Team Providers Care Financial Services Auditor Name Role Phone Nitish Joel MD Primary Care Provider [phone] Encounter Details Date Type Department Care Team (Late st Contact Info) Description 08/29/2022 Transcribe Orders [facility] Central Scheduling [address] [place] [address] Nacho Harper MD [address] [place] [id number] Social History Tobacco Use Types Packs/Day Years Used Date Smoking Tobacco: Never Assessed Comments Unknown Sex and Gender Information Value Date Recorded Sex Assigned at Not on file Legal Sex Female 4:23 PM BUSINESS MANAGEMENT INTERN Gender Identity Not on file Sexual Orientation Not on file COVID-19 Exposure Response Date Recorded In the last 10 days, have yo u been in contact with someone who was confirmed or suspected to have Coronavirus/COVID-19? No / Unsure 09/01/2022 1:49 PM BUSINESS MANAGEMENT INTERN documented as of this encounter Plan of Treatment Not on file documented as of this encounter Visit Diagnoses Not on filedocumented in this encounter Care Teams Financial Services Auditor Relationship Specialty Start Date End Date Nitish Joel MD PCP - General Urology 02/17/22 documented as of this encounter
--- OUTSIDE RECORDS SUMMARY | 2025-03-05 14:12 | XMS_ITS | Clinical Summary ---
Author Organization [facility] [address] Address [address] [place] [id number] Care Team Providers Care Computer Game Designer Name Role Phone Babak Wright MD Primary Care Provider [phone] Allergies Active Allergy Reactions Criticality Noted Date Comments Adhesive Rash Medium 07/24/2020 Latex Rash Medium 07/15/2020 Penicillins Hives High Medications folic acid/vit B complex and C (RENAL-YARELI ORAL) Take 1 tablet by mouth daily Active midodrine (PROAMATINE) 5 mg tabletIndication s:Symptomatic Orthostatic Hypotension Take 5 mg by mouth 3 (three) times a day Active meclizine (ANTIVERT) 12.5 mg tablet Take 12.5 mg by mouth 3 (three) times a day as needed for dizziness Active calcium acetate,phosphat bind, (PHOSLO) 667 mg capsule Take 2,001 mg by mouth 3 (three) times a day with meals Active ergocalciferol (VITAMIN D) 50,000 unit capsule Take 50,000 Units by mouth every 14 (fourteen) days Active cinacalcet (SENSIPAR) 60 mg tablet Take 60 mg by mouth daily Active calcitRIOL (ROCALTROL) 0.5 mcg capsule Take 0.5 mcg by mouth daily Active oxyCODONE-acetam inophen (PERCOCET) 5-325 mg per tabletIndication s:Pain Take 1 tablet by mouth every 6 (six) hours as needed for pain 15 tablet 1 Active HYDROcodone-acet aminophen (NORCO) 5-325 mg per tabletIndication s:Pain Take 1 tablet by mouth every 6 (six) hours as needed for pain 25 tablet 1 Active Active Problems Problem Noted Date Diagnosed Date Abdominal wall abscess 05/18/2021 Overview (05/18/2021): Added automatically from request for surgery [id number] Post-operative state 03/23/2021 Hypotension 02/19/2018 Encounter for contraceptive management 6 Anemia of chronic disease 07/27/2015 Hyperparathyroidism due to renal insufficiency 0 07/27/2015 History of migraine headaches 07/27/2015 Patient awaiting renal transplant 05/15/2015 End-stage renal disease 05/15/2015 Type 2 diabetes mellitus without complication Immunizations Immunization Administration Dates Next Due Hep B Vaccine 07/27/2015 Pneumococcal Conjugate PCV 13 07/27/2015 Varicella 08/24/2015,07/27/2015 Surgical History Surgery Date Site/Laterality Comments [facility] DELIVERY ONLY Section - (Added by TW Conv) KIDNEY SURGERY Kidney Surgery - (Added by TW Conv) [place] CHOLECYSTECTOMY Cholecystectomy - (Added by TW Conv) SECTION DIALYSIS FISTULA [employer]ATION Medical History Medical History Date Comments Renal tubulo-interstitial disease Kidney infection - (Added by TW Conv) Personal history of urinary calculi History of renal calculi - (Added by TW Conv) Hemodialysis patient Migraines Hypotension Family History Medical History Relation Name Comments Diabetes Father Family history of diabetes mellitus - (Added by TW Conv) Diabetes type II Father Family hist ory of type 2 diabetes mellitus - (Added by TW Conv) Heart disease Father Family history of cardiac disorder - (Added by TW Conv) Leukemia Father Family history of leukemia - (Added by TW Conv) Stroke Father Family history of cerebrovascular accident (CVA) - (Added by TW Conv) Diabetes type II Other 1 Family hist ory of type 2 diabetes mellitus - Relation: Grandparent (Added by TW Conv) Diabetes type II Other 2 Family hist ory of type 2 diabetes mellitus - Relation: Uncle (Added by TW Conv) Stroke Other 3 Family history of cerebrovascular accident (CVA) - Relation: Grandparent (Added by TW Conv) Stroke Other 4 Family history of cerebrovascular accident (CVA) - Relation: Uncle (Added by TW Conv) Heart disease Other 5 Family history of cardiac disorder - Relation: Grandparent (Added by TW Conv) Heart disease Other 6 Family history of cardiac disorder - Relation: Uncle (Added by Conv) Hypertension Other 7 Family history of hypertension - Relation: Grandmother (Added by Conv) Breast cancer Other 8 Family history of malignant neoplasm of breast - Relation: Grandmother (Added by Conv) Relation Name Status Comments Father Other 1 Other 2 Other 3 Other 4 Other 5 Other 6 Other 7 Other 8 Social History Tobacco Use Types Packs/Day Years Used Date Smoking Tobacco: Every Day Cigarettes 0.5 20 Smokeless Tobacco: Never Tobacco Cessation:Ready to Q uit: Yes; Counseling Given: Yes Comments:smokes 1/2 a day, attempting to quit Alcohol Use Standard Drinks/Week Comments Not Currently 0 (1 standard drink = 0.6 oz pur e alcohol) AUDIT-C Answer Date Recorded Q1: How often do you have a drink containing alc ohol? Never 05/03/2021 Average Number of Drinks Not on file 021 Q3: How often do you have si x or more drinks on one occasion? Never 05/03/2021 Comments No Sex and Gender Information Value Date Recorded Sex Assigned at Not on file Legal Sex Female 11:05 PM RN SURGICAL Gender Identity Not on file Sexual Orientation Not on file Obstetrics History Last Filed Vital Signs Vital Sign Reading Time Taken Comments Blood Pressure 127/68 05/25/2021 3:35 PM RN SURGICAL Pulse 68 05/25/2021 3:35 PM RN SURGICAL Temperature 36.5 C (97.7 F) 05/25/2021 3:04 PM RN SURGICAL Respiratory Rate 20 05/25/2021 3:35 PM RN SURGICAL Oxygen Saturation 100% 05/25/2021 3:35 PM RN SURGICAL Inhaled Oxygen Concentration - - Weight 69.4 kg (153 lb) 05/03/2021 1:00 PM CDT Height 160 cm (5' 3) 04/06/2021 11:52 AM CDT Body Mass Index 27.1 04/06/2021 11:52 AM CDT Plan of Treatment Not on file Medical Devices Implanted Type Area Pug Mill Operator Device Identifier Shelf Expiration Date Model / Serial / Lot [employer] [id number] Bergoo 15fr 62cm 2 Cuff Radiopaque Peritoneal Curl Catheter - [id number] Implanted:Qty : 1 on 07/28/2020 by Babak Wright MD at [facility] Catheter Right: Abdomen [employer] 01/13/2025 [id number] / / [id number] Insurance [place]PA [employer]ETNA MEDICARE MEDICARE [place] AETNA MEDICARE [facility] Care Teams Computer Game Designer Relationship Specialty Start Date End Date Babak Wright MD PCP - General 07/28/20
--- OUTSIDE RECORDS SUMMARY | 2025-03-05 14:12 | XMS_ITS | Clinical Summary ---
Author Organization [facility] Address [address] [place] [address] Care Team Providers Care Wage Conciliator Name Role Phone Unavailable Primary Care Provider Unavailabl e Source Comments [facility],non-owned Affiliates and Associated Physician Practices is amultiple site organization consisting of ambulatory clinics and hospital sitesin [place], [place], [place] and [place]. This disclosure is being madepursuant to the Care Everywhere program and may not contain all information available regarding this patient. Last updated 18.[facility] Allergies Active Allergy Reactions Criticality Noted Date Comments Adhesive Sensitivity Other,Rash,Itching Medium 010 tegaderms cause blisters; tolerates paper and cloth tape Plastic tape Cranberry Extract Itching Low 01/07/2010 Latex Itching,Rash,Urticar i a Medium 04/06/2016 Penicillin G Rash 02/09/2010 Penicillins Urticaria,Vomiting High 09/14/2009 Medications * Be aware that medications may not be up to date on this document. Alwaysverify current medications with the patient. acetaminophen (Tylenol) 500 MG tablet Take 2 (two) tablets by mouth every 8 hours Maximum allowable Acetaminophen amount = 4 Grams (4000 mg) / 24 hours. 4 Active pravastatin (Pravachol) 20 MG tablet Take 1 (one) tablet by mouth at bedtime 4 Active predniSONE (Deltasone) 5 MG tablet Take 1 (one) tablet by mouth daily with breakfast 4 Active polyethylene glycol 3350 (Miralax) 17 g packet Take 17 (seventeen) g by mouth once daily 4 Active docusate sodium (Colace) 100 MG capsule Take 1 (one) capsule by mouth 2 times daily as needed for Constipation Active ondansetron, disintegrating, (Zofran ODT) 4 MG tablet Take 1 (one) tablet by mouth every 6 hours as needed for Nausea/Vomiting Allow tablet to dissolve on the tongue Active sucralfate (Carafate) 1 GM tablet Take 1 (one) tablet by mouth 4 times daily as needed (acid reflux) Active colchicine 0.6 MG tablet Take 1 (one) tablet by mouth every 2 hours as needed for Pain Active cinacalcet (Sensipar) 30 MG tablet Take 1 (one) tablet by mouth daily with breakfast Active furosemide (Lasix) 20 MG tablet Take 1 (one) tablet by mouth once daily 30 tablet 05/23/2024 3:47 PM DIGITAL MEDIA ASSOCIATE 4 Active sodium bicarbonate 650 MG tablet Take 1 (one) tablet by mouth 2 times daily 60 tablet 05/23/2024 3:47 PM DIGITAL MEDIA ASSOCIATE 4 Active tacrolimus (Prograf) 1 MG capsule Take 3 (three) capsules by mouth every 12 hours 180 capsule 4 Active amLODIPine (Norvasc) 5 MG tablet Take 1 (one) tablet by mouth once daily Active calcium carbonate (Tums) 500 MG chew tablet Take 1 (one) tablet by mouth as directed Active vitamin D, ergocalciferol, (Drisdol) 1.25 MG (14779 UT) capsule Take 1 (one) capsule by mouth Two times a week 5 Active famotidine (Pepcid) 40 MG tablet Take 1 (one) tablet by mouth at bedtime 5 Active ondansetron (Zofran) 4 MG tablet Take 1 (one) tablet by mouth every 6 hours as needed 5 Active pantoprazole EC (Protonix) 40 MG tablet Take 1 (one) tablet by mouth 2 times daily 5 Active Active Problems Problem Noted Date Diagnosed Date Immunocompromised state 10/07/2024 Orthopedic hardware present 06/18/2024 Stage 3b chronic kidney disease 05/21/2024 Other neutropenia 05/21/2024 Macrocytic anemia 05/21/2024 Acute cystitis without hematuria 05/21/2024 PONV (postoperative nausea and vomiting) 024 Right leg pain 04/30/2024 JOHNNA (acute kidney injury) 04/30/2024 Hardware complicating wound infection, subsequen t encounter 04/30/2024 Acute pain 04/14/2024 Acute blood loss anemia 04/14/2024 Impaired mobility and ADLs 04/14/2024 S/P kidney transplant 04/14/2024 Type I or II open fracture o f proximal end of right tibia, unspecified fracture morphology, initial encounter 04/13/2024 Type I or II open fracture o f shaft of fibula with tibia, right, with routine healing, subsequent encounter 04/13/2024 Bimalleolar ankle fracture 04/13/2024 Fracture of right calcaneus 04/13/2024 Chronic constipation 04/13/2022 Overview (11/05/2024): Added automatically from request for surgery [id number] Gastroesophageal reflux disease 04/13/2022 Overview (11/05/2024): Added automatically from request for surgery [id number] Regurgitation of food 04/13/2022 Overview (11/05/2024): Added automatically from request for surgery [id number] Abdominal wall abscess 05/18/2021 Overview (11/05/2024): Added automatically from request for surgery [id number] Post-operative state 03/23/2021 Bulimia 02/19/2018 Hypotension 02/19/2018 Hemodialysis patient 02/01/2016 Seasonal allergies 02/01/2016 Encounter for contraceptive management 6 History of migraine headaches 07/27/2015 Patient awaiting renal transplant 05/15/2015 Dependence on renal dialysis 05/14/2015 Hypercalcemia 05/14/2015 Hyperparathyroidism due to renal insufficiency 1 Iron deficiency anemia 05/14/2015 Low back pain 05/14/2015 Other disorders of phosphorus metabolism 015 Other specified complication of vascular prosthetic devices, implants and grafts, initial encounter 05/14/2015 Protein-calorie malnutrition 05/14/2015 Type 2 diabetes mellitus without complication Anemia in chronic kidney disease 05/14/2015 Supervision of high risk pre gnancy, unspecified, unspecified trimester 05/14/2015 Dysphagia 02/10/2014 End-stage renal disease 07/31/2013 Itching 10/01/2012 Overview (11/01/2012): Bile acids 5 Now resolved Encounter for health-related screening 2 Overview (10/14/2017): SS started but discontinued after 1st draw as serum analytes would have increased clearance secondary to the dialysis and would be unreliable. Spoke with pt about [id number] testing and is agreeable. Ordered consult with genetics to set her up. [id number] sent 07/25. Result showed no evidence of Down syndrome, trisomy 18, or trisomy 13. Y chromosome material was detected in the sample. Could not reach patient to review results by phone; results were included in genetic counseling letter. See scanned report under Media. Arturo Worthington MS, [facility] IMO update 10 15 2017 Benign essential hypertension, antepartum 2011 Overview (10/15/2016): Previously on Metoprolol (stopped when she found out she was ) Monitors BP at home. Not currently on medications. IMO Update 10/15/2016 Supervision of other high-risk 012 Overview (05/24/2015): Datin week documented scan PNL: A+/I/-/- Ab: neg GCT: 75 at 10w; 118 HIV: nr H/H/Plt: 36/178 Hgb Elec: Pap: neg 05/28/12 Gc/Chl: neg/neg UCx: pend 11/01 GBS: Renal failure 05/25/2012 Overview (09/03/2012): Patient has right kidney (left kidney removed at 6 yrs old because it was not functional) On Dialysis with [facility] [phone] Dialysis done 6 times a week (4 hours on M,W,F and 3 hours on Tues/Thurs/Sat) GCT pending See results tab for trend in Cr. H/O: 05/25/2012 Overview (06/12/2012): CS X3 All CS done per pt due to having one kidney- labor and pushing would put too much strain on that kidney) Records received for CS in G1 and G3: 01/02/2003 Primary low transverse section, due to nephrotic syndrom and uninducible cervix 06/20/2008 Classical section via Pfannenstiel, due to noncompliance and h/o nephrectomy w chronic renal failure, chronic pyelo on antibiotics Nausea & vomiting 01/11/2010 Uremia 01/03/2010 Metabolic acidosis 10/16/2009 Ovarian cyst 10/16/2009 Solitary kidney, acquired 10/16/2009 Ureteral obstruction 10/16/2009 Acute pyelonephritis 10/16/2009 Anemia in chronic kidney disease 10/16/2009 Lower urinary tract infectious disease 0 Abnormal vaginal bleeding 09/14/2009 Adnexal mass 09/14/2009 Overview (11/05/2024): On right. CKD (chronic kidney disease) stage 5, GFR less than 15 ml/min 09/14/2009 Hydronephrosis 09/14/2009 Nephrotic range proteinuria 09/14/2009 Right flank pain 09/14/2009 History of nephrectomy, unilateral 09/14/2009 Overview (11/05/2024): On left Resolved Problems Problem Noted Date Diagnosed Date Resolved Date Depression 05/28/2012 05/28/2012 Fever 02/09/2010 05/25/2012 Constipation 01/11/2010 12/03/2024 Dehydration 10/17/2009 11/19/2024 Immunizations Immunization Administration Dates Next Due COVID [employer] PRIMARY 18+YR 09/30/2020 Covid Pfizer primary monoval ent 12+ yr 0.3mL Purple cap 07/22/2021 DTP, HISTORIC VACCINE 09/18/1991, 990,11/25/1987,1986 FLU VACCINE TRI IIV3 SPLIT P F IM (FLUVIRIN) 09/18/2009 HEP B VACCINE 09/15/2000,05/29/2000,03/06/2000 HEP B VACCINE, ADULT 3 DOSE 07/27/2015 HIB-PRP-T 4 DOSE 06/20/1990 Human Papilloma Virus Nineva lent Vaccine 02/01/2021,11/20/2020 INFLUENZA VACCINE, TRIV. (FL UZONE; FLULAVAL; FLUARIX; AFLURIA TRIVALENT; 6MO+), 0.5 ML (IIV3) 05/15/2024 MMR VACCINE 09/18/1991,04/18/1990 PNEUMOCOCCAL PCV VACCINE 05/20/2014,07/16/2009 PNEUMOCOCCAL PCV7 CONJ, PEDS 09/18/2009 PNEUMOCOCCAL PPSV23 01/23/2011 POLIO OPV 09/18/1991, 0,11/25/1987,1986 Pneumococcal Pcv13 Conj 08/12/2020,07/27/2015 TD (AGE 7-ADULT) 03/06/2000 TDAP (7yrs+) 04/12/2024 VARICELLA 08/24/2015,07/27/2015 iNFLUENZA VACCINE, RECOM-PUENTE, QUADR. (FLUBLOCK QUADRIVALENT; 18Y+) (RIV4) 04/06/2023 Family History Medical History Relation Name Comments Cancer Father Depression Father Diabetes Father Heart Failure Father Stroke Father Asthma Maternal Grandmother Asthma Mother Asthma Paternal Grandfather Diabetes Paternal Grandfather Heart Failure Paternal Grandfather Stroke Paternal Grandfather Cancer Paternal Grandmother Cancer - Breast Paternal Grandmother Diabetes Paternal Uncle Stroke Paternal Uncle Hypercholesterolemia Sister Relation Name Status Comments Father Maternal Grandmother Mother Paternal Grandfather Paternal Grandmother Paternal Uncle Sister Social History Tobacco Use Types Packs/Day Years Used Date Smoking Tobacco: Every Day Cigarettes 0.5 1 Started: 03/17/2024 Smokeless Tobacco: Current Tobacco Cessation:Ready to Q uit: Not Asked; Counseling Given: Not Answered Alcohol Use Standard Drinks/Week Comments No 0 (1 standard drink = 0.6 oz pur e alcohol) AUDIT-C Answer Date Recorded Q1: How often do you have a drink containing alcohol? Never 07/24/2024 Q2: How many drinks containi ng alcohol do you have on a typical day when you are drinking? Patient does not drink Q3: How often do you have si x or more drinks on one occasion? Never 07/24/2024 Overall Financial Resource Strain (CARDIA) Answe r Date Recorded How hard is it for you to pa y for the very basics like food, housing, medical care, and heating? Not hard at all 05/01/2024 PHQ-2 Answer Date Recorded Patient Health Questionnaire-2 Score 0 11/18/2024 [facility] - Occupational Stress Questionnaire Answer Date Recorded Do you feel stress - tense, restless, nervous, or anxious, or unable to sleep at night because your mind is troubled all the time - these days? Not at all 05/01/2024 Hunger Vital Sign Answer Date Recorded Within the past 12 months, y ou worried that your food would run out before you got the money to buy more. Never true 05/01/20 24 Within the past 12 months, t he food you bought just didn't last and you didn't have money to get more. Never true 05/01/2024 PRAPARE - Transportation Answer Date Re corded In the past 12 months, has l ack of transportation kept you from medical appointments or from getting medications? No 04/16 In the past 12 months, has l ack of transportation kept you from meetings, work, or from getting things needed for daily living? No 05/01/2024 Housing Stability Vital Sign Answer Jaison e Recorded In the last 12 months, was t here a time when you were not able to pay the mortgage or rent on time? No 04/13/2024 In the last 12 months, how many places have you lived? 1 04/13/2024 In the last 12 months, was t here a time when you did not have a steady place to sleep or slept in a snf (including now)? No 04/13/2024 Housing Stability Vital Sign Answer Jaison e Recorded In the last 12 months, was t here a time when you were not able to pay the mortgage or rent on time? No 05/01/2024 In the past 12 months, how m any times have you moved where you were living? 1 05/01/2024 At any time in the past 12 m [facility], were you homeless or living in a snf (including now)? No 05/01/2024 Comments No Sex and Gender Information Value Date Recorded Sex Assigned at Not on file Legal Sex Female 9:03 AM DIGITAL MEDIA ASSOCIATE Gender Identity Not on file Sexual Orientation Not on file Last Filed Vital Signs Vital Sign Reading Time Taken Comments Blood Pressure 148/95 10/07/2024 1:31 PM CDT Pulse 109 10/07/2024 1:31 PM CDT Temperature 36.3 C (97.3 F) 10/07/2024 1:31 PM CDT Respiratory Rate 9 07/24/2024 1:50 PM DIGITAL MEDIA ASSOCIATE Oxygen Saturation 98% 10/07/2024 1:31 PM CDT Inhaled Oxygen Concentration 21% 07/24/2024 1 :50 PM DIGITAL MEDIA ASSOCIATE Weight 114.2 kg (251 lb 12.8 oz) 10/07/2024 1:31 PM CDT Height 160 cm (5' 3) 10/07/2024 1:31 PM CDT Body Mass Index 44.6 10/07/2024 1:31 PM CDT Plan of Treatment Upcoming Encounters Date Type Department Care Team (Late st Contact Info) Description 04/03/2025 1:00 PM CDT Office Visit [facility] - Infectious Disease [address] [place] [address], [facility] [place] [address] Kirk Chadwick MD [address] [place] [address] [phone] Health Maintenance Due Date Last Done Comments ZOSTER VACCINE (1 of 2) 2005 PAP SMEAR 05/28/2015 05/28/2012 HEPATITIS B VACCINE (2 of 2 - Risk Dialysis 4-dose series) 07/27/2016 07/27/2015, 09/15/2000, 05/29/2000, Additional history exists HPV VACCINE (3 - Risk 3-dose series) 06/04/2021 02/01/2021, 11/20/2020 COVID-19 VACCINE ( season) 2024 07/22/2021, 09/30/2020 MEDICARE AWV CALENDAR YEAR 2024 DIABETES RETINOPATHY SCREENING 11/05/2024 DIABETES-FOOT EXAM WITH MONOFILAMENT 11/05/2024 DIABETES-HGB A1C 11/05/2024 05/03/2024, 02/2021, 04/22/2014 INFLUENZA VACCINE (#1) 2025 , 04/06/2023, 09/18/2009 PNEUMOCOCCAL VACCINE (3 of 3 - PCV20 or PCV21) 08/12/2025 08/12/2020, 07/27/2015, 05/20/2014, Additional history exists DTAP/TDAP/TD VACCINES (7 - Td or Tdap) 04/12/2034 04/12/2024, 03/06/2000, 09/18/1991, Additional history exists HIB VACCINE Completed 06/20/1990 HEPATITIS C SCREENING Completed 04/22/2014 , 01/12/2010, 01/12/2010, Additional history exists HIV SCREENING Completed 04/22/2014, 05/28/2012 DEPRESSION SCREENING Completed 10/07/2024 MENINGOCOCCAL (Group B) VACCINE SHARED DECISION-MAKING Aged Out No longer eligible based on patient's age to complete this topic MENINGOCOCCAL GROUPS A/C/Y/W VACCINE Aged Out No longer eligible based on patient's age to complete this topic Medical Devices Implanted Type Area Crisis Intervention Counselor Device Identifier Shelf Expiration Date Model / Serial / Lot Patch Periph Vascu-Gurd 1.0cm X 8.0cm Implanted:Qty: 1 on 04/15/2016 by Spike Carpenter MD at [facility] Left: Arterial [employer] 10/18/2020 [id number] DISCONTINUED / / [id number] 2 Clamp Extfix Jtx 10.5mm Bar To Bar Mr Sf Implanted:Qty: 5 on 04/13/2024 by Hardy Dejesus MD at [facility] Right: Ankle [employer] [id number] / / Bar Extfix 200mm Jtx Cfbr Nonster Disp Implanted:Qty: 3 on 04/13/2024 by Hardy Dejesus MD at [facility] Right: Ankle [employer] [id number] / / Pin Hlf 30mm 5mm Jtx Shrt Ti Ntrd Unlat Implanted:Qty: 2 on 04/13/2024 by Hardy Dejesus MD at [facility] Right: Ankle [employer] [id number] / / Clamp Extfix [id number] Qck Cnct Implanted:Qty: 2 on 04/13/2024 by Hardy Dejesus MD at [facility] Right: Ankle [employer] [id number] / / Pin Hlf 35mm 4mm Jtx Shrt Orth Ti Ntrd Implanted:Qty: 2 on 04/13/2024 by Hardy Dejesus MD at [facility] Right: Ankle [employer] [id number] / / 2.7mm Locking Screw, Self-Tapping, 44mm Implanted:Qty: 1 on 05/14/2024 by Anand Amador, DO at [facility] Right: Ankle [employer] Trauma [id number] / / Screw 2.7mm 5mm 44mm T8 Slf-Tap Strdr Implanted:Qty: 1 on 05/14/2024 by Anand Amador, DO at [facility] Right: Ankle [employer] Usa 202.963 / / Screw 2.7mm 12mm T8 Slf-Tap Lck Va Strdr Implanted:Qty: 1 on 05/14/2024 by Anand Amador, DO at [facility] Right: Ankle [employer]sa 02.211.012 / / Screw 2.7mm 18mm T8 Slf-Tap Lck Va Strdr Implanted:Qty: 2 on 05/14/2024 by Anand Amador, DO at [facility] Right: Ankle [employer]sa 02.211.018 / / Screw 2.7mm 22mm T8 Slf-Tap Lck Va Strdr Implanted:Qty: 2 on 05/14/2024 by Anand Amador, DO at [facility] Right: Ankle [employer]sa 02.211.022 / / Screw 2.7mm 38mm T8 Slf-Tap Lck Va Strdr Implanted:Qty: 1 on 05/14/2024 by Anand Amador, DO at [facility] Right: Ankle [employer]sa 02.211.038 / / Screw 2.7mm 40mm T8 Slf-Tap Lck Va Strdr Implanted:Qty: 1 on 05/14/2024 by Anand Amador, DO at [facility] Right: Ankle [employer]sa 02.211.040 / / Screw 2.7mm 42mm T8 Slf-Tap Lck Va Strdr Implanted:Qty: 1 on 05/14/2024 by Anand Amador DO at [facility] Right: Ankle [employer]sa 02.211.042 / / Screw 2.7mm 48mm T8 Slf-Tap Lck Va Strdr Implanted:Qty: 1 on 05/14/2024 by Anand Amador DO at [facility] Right: Ankle [employer]sa 02.211.048 / / Screw 3.5mm 6mm 14mm Ft Josh Slf-Tap Sm Implanted:Qty: 3 on 05/14/2024 by Anand Amador DO at [facility] Right: Ankle [employer]sa 204.814 / / Screw 3.5mm 6mm 24mm 2.5mm Ft Slf-Tap Implanted:Qty: 2 on 05/14/2024 by Anand Amador DO at [facility] Right: Ankle [employer] Usa 204.824 / / Screw 3.5mm 6mm 26mm 2.5mm Ft Slf-Tap Implanted:Qty: 1 on 05/14/2024 by Anand Amador DO at [facility] Right: Ankle [employer]sa 204.826 / / Screw 3.5mm 6mm 28mm Slf-Tap Sm Hex Sckt Implanted:Qty: 2 on 05/14/2024 by Anand Amador DO at [facility] Right: Ankle [employer]sa 204.828 / / Screw 3.5mm 6mm 30mm 2.5mm Ft Slf-Tap Implanted:Qty: 1 on 05/14/2024 by Anand Amador DO at [facility] Right: Ankle [employer] Usa 204.830 / / 2.7mm / 3.5mm Variable Angle Lcp Anteriolateral Distal Tibia Plate, 6 Holes Right Implanted:Qty: 1 on 05/14/2024 by Anand Amador DO at [facility] Right: Ankle [employer] Trauma 02.118.204S / / Screw 2.7mm 44mm T8 Slf-Tap Strdr Lopro Implanted:Qty: 1 on 05/14/2024 by Anand Amador DO at [facility] Right: Ankle [employer] Usa 02.118.544 / / Plate 7 Hl Fib Rt Dist Lat 125mm Contr Implanted:Qty: 1 on 05/14/2024 by Anand Amador DO at [facility] Right: Ankle [employer] Usa 02.112.144S / / Screw 3.5mm 6mm 18mm Ft Josh Slf-Tap Sm Implanted:Qty: 1 on 05/14/2024 by Anand Amador DO at [facility] Right: Ankle [employer] Usa 204.818 / / Graft Bone Canc 4-9.5mm 15cc [facility] - [id number] Implanted:Qty: 1 on 05/14/2024 by Anand Amador DO at [facility] Right: Ankle [employer] 10/22/2028 [id number] / [id number] / [id number] Plate 1/3 Tblr [id number] 7 Hl Colr Ss Implanted:Qty: 1 on 05/14/2024 by Anand Amador DO at [facility] Right: Ankle [employer] Usa 241.371 / / Explanted Type Area Crisis Intervention Counselor Device Identifier Shelf Expiration Date Model / Serial / Lot Screw 3.5mm 2.9mm 16mm T15 Ft Slf-Tap Explanted:Qty: 1 on 05/14/2024 by Anand Amador DO at [facility] Right: Ankle [employer] Usa 212.104 / / Screw 3.5mm 2.9mm 20mm T15 Ft Slf-Tap Explanted:Qty: 1 on 05/14/2024 by Anand Amador DO at [facility] Right: Ankle [employer] Usa 212.106 / / Wire K 1.6mm 150mm Troc Pnt Ss Fx Explanted:Qty: 2 on 05/14/2024 by Anand Amador DO at [facility] Right: Ankle [employer] Usa 292.16 / / Wire K 2.5mm 150mm Troc Pnt Ss Fx Explanted:Qty: 2 on 05/14/2024 by Anand Amador DO at [facility] Right: Ankle [employer] Usa 292.25 / / Wire K 2mm 150mm Troc Tip Ss Fx Nonster Explanted:Qty: 1 on 05/14/2024 at [facility] Right: Ankle [employer] Usa 292.20 / / Wire K 2mm 228mm Troc Pnt Ss Prlc Plate Explanted:Qty: 2 on 05/14/2024 by Anand Amador DO at [facility] Right: Ankle [employer] [id number] / / Procedures Procedure Name Priority Date/Time Associated Diagnosis Comments HEMOGLOBIN A1C Routine 05/03/2024 4:52 AM CDT HEPATITIS C ANTIBODY Routine 04/22/2014 7:41 AM CDT HIV-1 HIV-2 ANTIGEN/ANTIBODY Routine 04/22/2014 7:41 AM CDT CYTOLOGY CERVICAL/VAG DIAG THIN PREP Today 05/28/2012 11:30 AM DIGITAL MEDIA ASSOCIATE from Last 3 Months or Most Recently Relevant to Health Maintenance Results * HEMOGLOBIN A1C (05/03/2024 4:52 AM CDT) Hemoglobin A1c 4.3 <=5.6 % 05/03/2024 9:18 AM CDT [facility] Estimated Average Glucose 77 mg/dL 05/03/2024 9:18 AM CDT [facility] Comment: HbA1c Interpretation: Normal : < 5.7% Pre-diabetes: 5.7-6.4% Diabetes: Equal to or greater than 6.5% Test results diagnostic of diabetes should be repeated for confirmation. Treatment target values recommended by ADA and other clinical organizations should be used to evaluate metabolic control in patients. Reference: [place] Diabetes Association, Standards of Care in Diabetes -2020 In patients 70 years and older consider HbA1c target range of 7.0-7.5% (Reference: Alireza Lee et al. JAMDA. 2012) The Sebia assay for the measurement of HbA1c is a National Glycohemoglobin Standardization Program (NGSP) certified method. Blood BLOOD SPECIMEN / Unknown Venipuncture / Unknown 05/03/2024 4:52 AM CDT 05/03/2024 5:14 AM CDT Rajiv Tilley MD LAB - CHEMISTRY ORDERABLES F inal Result Performing Organization Address City/[facility]/ZIP Co de Phone Number [facility] [address] [id number], [facility] [phone] * HIV-1 HIV-2 ANTIGEN/ANTIBODY (04/22/2014 7:41 AM CDT) HIV Antigen/Antibod y 1 & 2 Non-reacti ve Non-react [facility] Comment: Neither HIV-1 p24 Antigen nor HIV-1/HIV-2 Antibodies are detected. Blood specimen (specimen) BLOOD SPECIMEN / Unknown 04/22/2014 7:41 AM CDT 04/22/2014 7:52 AM CDT Kale Eldridge MD LAB - HEMATOLOGY ORDERABLES Azucena l Result Performing Organization Address [facility] [place] [address], [facility] [phone] * HEPATITIS C ANTIBODY (04/22/2014 7:41 AM CDT) Hepatitis C Antibody Non-react [facility] Comment: Hepatitis C Antibody screen indicates no serologic evidence of past or current infection with Hepatitis C Virus. Patients with unexplained liver disease who are immunocompromised or suspected of having acute Hepatitis C infection may benefit from Nucleic Acid Test (SOM) for Hepatitis C Viral RNA to confirm Hepatitis C status. Blood specimen (specimen) BLOOD SPECIMEN / Unknown 04/22/2014 7:41 AM CDT 04/22/2014 7:52 AM CDT us Kale Eldridge MD LAB - CHEMISTRY ORDERABLES Final Result Performing Organization Address [facility]/[place] [address], [facility] [phone] * CYTOLOGY CERVICAL/VAG DIAG THIN PREP (05/28/2012 11:30 AM DIGITAL MEDIA ASSOCIATE) Comment Thin Prep [facility] Pap Smear Report See Scanned Report [facility] MICROSCOPIC CYTOLOGIC EXAMINATION OF SMEAR OF SPECIMEN FROM FEMALE GENITAL TRACT PREPARED USING PAPANICOLAOU TECHNIQUE / Unknown 05/28/2012 11:30 AM DIGITAL MEDIA ASSOCIATE 05/28/2012 12:54 PM DIGITAL MEDIA ASSOCIATE Narrative [facility] - 06/10/2012 1:14 PM DIGITAL MEDIA ASSOCIATE Performed By [facility]() [address], [place] [address] us Ainsley Barrios MD LAB - PATHOLOGY/CYTOLOGY BRENDA POLLARD Final Result [facility] [facility] [address] [place] [address] from Last 3 Months or Most Recently Relevant to Health Maintenance Insurance MEDICA[place] AETNA MEDICARE ADV AETNA MEDICARE ADV [place] Advance Directives * Full Code (Latest Code Status on File) Date Activated Date Inactivated Comments 04/30/2024 11:45 AM 05/23/2024 6:42 PM * Full Code Date Activated Date Inactivated Comments 04/13/2024 2:41 AM 04/15/2024 9:16 PM * FULL RESUSCITATION Date Activated Date Inactivated Comments 12/04/2012 2:36 PM 12/07/2012 4:14 PM * FULL RESUSCITATION Date Activated Date Inactivated Comments 12/03/2012 1:12 PM 12/04/2012 2:35 PM * FULL RESUSCITATION Date Activated Date Inactivated Comments 09/03/2012 8:50 PM 09/07/2012 4:39 PM
--- OUTSIDE RECORDS SUMMARY | 2025-03-05 14:12 | XMS_ITS | Clinical Summary ---
Author Organization [facility] Address [address], [facility] [address] [place] [address] Phone Care Team Providers Care Physics Faculty Member Name Role Phone Nitish Joel MD Primary Care Provider Allergies Active Allergy Reactions Criticality Noted Date Comments Latex Hives 03/01/2022 Medications atorvastatin (LIPITOR) 10 MG Tablet Take 1 Tablet by mouth daily. 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 Gender Identity Not on file Sexual Orientation Not on file Plan of Treatment Health Maintenance Due Date Last Done Comments Hepatitis C Virus (HCV) Screening 1986 TdaP Immunization 1986 Pap Smear 2007 Hepatitis B Immunization (2 of 3 - 19+ 3-dose series) 08/24/2015 07/27/2015 Cervical Cancer Screening (CCS) 2016 HPV/Cotest 2016 Human Papillomavirus (HPV) Immunization (3 - 3-dose SCDM series) 05/23/2021 02/01/2021, 11/20/2020 SARS-COV-2 Immunization ( - season) 2024 07/22/2021, 09/30/2020 Influenza Immunization (#1) 2025 09/18/2009 Respiratory Syncytial Virus (RSV) Immunization (Adult) (1 - 1-dose 75+ series) 2061 Pneumococcal Immunization Combined Aged Out 07/27/2015, 01/23/2011, 09/18/2009 No longer eligible based on patient's age to complete this topic Meningococcal Immunization (ACWY) Aged Out No longer eligible b ased on patient's age to complete this topic Rotavirus Immunization Aged Out No lo nger eligible based on patient's age to complete this topic Insurance MEDICARE [place] MEDICARE C AETNA [place] Care Teams Physics Faculty Member Relationship Specialty Start Date End Date Nitish Joel MD PCP - General Urology 02/17/22
--- OUTSIDE RECORDS SUMMARY | 2025-03-05 14:13 | XMS_ITS | Patient Health Record ---
Author Organization [facility] Address [address] [place] [address] Care Team Providers Care Pain Management Nurse Practitioner Name Role Phone Juana DRUMMOND, [facility] [phone] Reason For Referral No Information Social History Tobacco Use: Social History Observation Description Date Details (start date - stop date) Current Smoker NA - NA Tobacco Use/Smoking Question Answer Notes Are you a current smoker Alcohol Screen Question Answer Notes Did you have a drink containing alcohol in the p ast year? No Points 0 Interpretation Negative Problems Problem Type SNOMED Code ICD Code Onset Dates Problem Status W/U Status Risk Notes Problem End stage renal disease (18245567) End stage renal disease (N18.6) Active confirmed Problem Other mechanical complication of surgically created arteriovenous fistula, initial encounter (T82.590A) Active confirmed Problem Dependence on renal dialysis (066339731) Dependence on renal dialysis (Z99.2) Active confirmed Plan Of Treatment No Information Insurance Providers Payer Name Payer Address Payer Phone Subscriber Number Group Number Insured Name Patient Relationship to Insured Coverage Start Date Coverage End Date MEDICARE PART B [address] [address] [place], [place] [id number] Mily Oliveros Self - patient is the insured [employer] [address] [address] [place], [place] [id number] Mily Oliveros Self - patient is the insured Medical (General) History Medical History History ICD Code ESRD
[2025-03-05 15:20] LABS: Add Urine Microscopic? YES; Appearance Urine Cloudy (Clear); Glucose Urine UA Negative (Negative); Leukocyte Esterase Ur 3+ LEU/UL (Negative); Nitrate Urine Negative (Negative); Non Pathogenic Casts 0-2; Specific Grav Ur 1.013 (1.001-1.035)
== END 2025-03-05 13:43 | disposition home or self-care (01) ==
PROVIDERS: Visit Provider Internal Medicine Nephrology
DX: Z94.0 Kidney transplant status (principal)
CPT/HCPCS: 81001; 87086

== ENCOUNTER 2025-06-18 10:02 | Outpatient (CLI) | payer MEDICARE, MEDICAID, SELFPAY ==
--- NOTE | ~2025-06-18 | DEXA_ITS ---
Bone Density Report Name: TIFFANIE CAMPUZANO Age: 39 Sex: Female Ethnicity: White Date of : 1985 Indication: end stage renal disease; Referring Provider: ERIN, LEEANN Randhawa Study: Bone densitometry was performed. Exam Date: June 18, 2025 Accession number: [id number] Bone Density: Region BMD T-score Z-score Classification AP Spine(L1-L4) 1.064 0.3 Femoral Neck (Left) 0.770 -0.5 Total Hip (Left) 0.988 0.5 Femoral Neck (Right) 0.750 -0.6 Total Hip (Right) 0.891 -0.3 Total Hip Mean 0.939 0.1 World Health Organization criteria for BMD impression classify patients as: Normal (T-score at or above -1.0), Osteopenia (T-score between -1.0 and -2.5), or Osteoporosis (T-score at or below -2.5). 10-year Fracture Risk: FRAX not reported because: Premenopausal woman Clinical Information Provided by Patient: Smokes Has used the following medications: Vitamin D Has the following medical conditions: End stage renal disease Onset of menses at age 12 Premenopausal Number of children 4 Impression: The patient's bone mass is within expected range for age, gender and ethnicity. The patient has risk factors, including: smoking. Discussion: BONE DENSITY IS WITHIN EXPECTED LIMITS FOR AGE, SEX AND RACE. Bone density is within expected limits for age, sex and race at all sites measured. The patient should follow a healthful lifestyle (good nutrition with adequate calcium and vitamin D, and appropriate weight-bearing exercise). Follow-Up: Consider repeating this study in 5 years or sooner if there is some new clinical indication. Reported by: LOGAN on 06/18/2025 10:45:00 AM. Reviewed, dictated and finalized at location A.
--- OUTSIDE RECORDS SUMMARY | 2025-06-18 11:12 | XMS_ITS | Clinical Summary ---
Author Organization [facility] Address [address] [place] [address] Care Team Providers Care Content Coordinator Name Role Phone Unavailable Primary Care Provider Unavailabl e Source Comments [facility],non-owned Affiliates and Associated Physician Practices is amultiple site organization consisting of ambulatory clinics and hospital sitesin [place], [place], [place] and [place]. This disclosure is being madepursuant to the Care Everywhere program and may not contain all information available regarding this patient. Last updated 18.[facility] Allergies Active Allergy Reactions Criticality Noted Date Comments Adhesive Sensitivity Other,Rash,Itching Medium 010 tegaderms cause blisters; tolerates paper and cloth tape Plastic tape Cranberry Extract Itching Low 01/07/2010 Doxycycline Photosensitivity 05/01/2025 Latex Itching,Rash,Urticaria Medium 04/06/2016 Penicillin G Rash 02/09/2010 Penicillins [...] times daily as needed for Constipation Active sucralfate (Carafate) 1 GM tablet Take [...] once daily 30 tablet 05/23/2024 3:47 PM TICKETING CLERK 4 Active Additional Information Patient taking differently:20 mg Oral2 TIMES DAILY (before breakfast and supper), Reported on 05/01/2025 sodium bicarbonate 650 MG tablet Take 1 (one) tablet by mouth 2 times daily 60 tablet 05/23/2024 3:47 PM TICKETING CLERK 4 Active tacrolimus (Prograf) 1 MG capsule Take 3 (three) capsules by mouth every 12 hours 180 capsule 4 Active amLODIPine (Norvasc) 5 MG tablet Take 1 (one) tablet by mouth once daily Active calcium carbonate (Tums) 500 MG chew tablet Take 1 (one) tablet by mouth as directed Active vitamin D, ergocalciferol, (Drisdol) 1.25 MG (73874 UT) capsule Take 1 (one) capsule by [...] (11/05/2024): Added automatically from request for surgery [id number] Gastroesophageal reflux disease 04/13/2022 Overview (11/05/2024): Added automatically from request for surgery [id number] Regurgitation of food 04/13/2022 Overview (11/05/2024): Added automatically from request for surgery [id number] Abdominal wall abscess 05/18/2021 Overview (11/05/2024): Added automatically from request for surgery [id number] Post-operative state 03/23/2021 Bulimia 02/19/2018 Hypotension 02/19/2018 [...] 05/14/2015 Type 2 diabetes mellitus without complication Overview (04/16/2025): IMO 04/16/2025 Anemia in chronic kidney disease 05/14/2015 Supervision [...] would be unreliable. Spoke with pt about [id number] testing and is agreeable. Ordered consult with genetics to set her up. [id number] sent 07/25. Result showed no evidence of Down syndrome, trisomy 18, or trisomy 13. Y chromosome material was detected in the sample. Could not reach patient to review results by phone; results were included in genetic counseling letter. See scanned report under Media. Arturo Worthington MS, [facility] IMO update 10 15 2017 Benign essential hypertension, antepartum 2011 Overview (10/15/2016): Previously on Metoprolol (stopped when she found out she was ) Monitors BP at home. Not currently on medications. IMO Update 10/15/2016 Supervision of other high-risk 012 Overview (05/24/2015): Datin week documented scan PNL: A+/I/-/- Ab: neg GCT: 75 at 10w; 118 HIV: nr H/H/Plt: /178 Hgb Elec: Pap: neg 05/28/12 Gc/Chl: neg/neg UCx: pend 11/01 GBS: Renal failure 05/25/2012 Overview (09/03/2012): Patient has right kidney (left kidney removed at 6 yrs old because it was not functional) On Dialysis with [facility] [phone] Dialysis done 6 times a week (4 hours on ,W, and 3 hours on /Th/Sat) GCT pending See results tab for trend [...] 10/16/2009 Anemia in chronic kidney disease 10/16/2009 Recurrent UTI 09/16/2009 Abnormal vaginal bleeding 09/14/2009 Adnexal mass 09/14/2009 Overview (11/05/2024): On right. CKD (chronic kidney disease) stage 5, GFR less than 15 ml/min 09/14/2009 Hydronephrosis 09/14/2009 Nephrotic range proteinuria 09/14/2009 Right flank pain 09/14/2009 History of nephrectomy, unilateral 09/14/2009 Overview (11/05/2024): On left Resolved Problems Problem Noted Date Diagnosed Date Resolved Date Depression 05/28/2012 05/28/2012 Fever 02/09/2010 05/25/2012 Constipation 01/11/2010 12/03/2024 Dehydration 10/17/2009 11/19/2024 Encounters Date Type Department Care Team Description 05/20/2025 Telephone [facility] [address] [place] [address], [place] [id number] Kirk Chadwick MD Follow-up 05/01/2025 1:00 PM CDT Office Visit [facility] [address] [place] [address], [place] [address] Kirk Chadwick MD Hardware complicating wound infection, subsequent encounter (Primary Dx); Type I or II open fracture of shaft of fibula with tibia, right, with routine healing, subsequent encounter; Orthopedic hardware present; S/P kidney transplant (HCC); Stage 3b chronic kidney disease (HCC); Recurrent UTI; FDC (current) use of antibiotics; Immunocompromised state (HCC); Need for vaccination; Routine health maintenance 05/01/2025 Travel from Last 3 Months Immunizations Immunization Administration Dates Next Due COVID [employer] PRIMARY 18+YR 09/30/2020 Covid Paxera primary monoval ent 12+ yr 0.3mL Purple cap 07/22/2021 DTP, HISTORIC VACCINE 09/18/1991, 990,11/25/1987,1986 FLU VACCINE TRI IIV3 SPLIT P F IM (FLUVIRIN) 09/18/2009 HEP B VACCINE 09/15/2000,05/29/2000,03/06/2000 HEP B VACCINE, ADULT 3 DOSE 07/27/2015 HIB-PRP-T 4 DOSE 06/20/1990 Human Papilloma Virus Nineva lent Vaccine 02/01/2021,11/20/2020 INFLUENZA VACCINE, HIGH-DOSE , TRIV. (FLUZONE HIGH-DOSE TRIVALENT; 65Y+) (HD-IIV3) 05/01/2025 INFLUENZA VACCINE, TRIV. (FL UZONE; FLULAVAL; FLUARIX; [...] Date Smoking Tobacco: Every Day Cigarettes 0.5 1.3 Started: 03/17/2024 Smokeless Tobacco: Current Tobacco Cessation:Ready [...] Date Recorded Patient Health Questionnaire-2 Score 0 05/01/2025 [facility] [place] [facility] Occupat ional [facility] - Occupational Stress [...] place to sleep or slept in a residential (including now)? No 04/13/2024 Housing Stability Vital Sign Answer Jaison e Recorded In the last 12 months, was t here a time when you were not able to pay the mortgage or rent on time? No 05/01/2024 In the past 12 months, how m any times have you moved where you were living? 1 05/01/2024 At any time in the past 12 m [facility], were you homeless or living in a residential (including now)? No 05/01/2024 Comments No Sex and Gender Information Value Date Recorded Sex Assigned at Not on file Legal Sex Female 9:03 AM TICKETING CLERK Gender Identity Not on file Sexual Orientation Not on file Last Filed Vital Signs Vital Sign Reading Time Taken Comments Blood Pressure 127/79 05/01/2025 1:02 PM CDT Pulse 93 05/01/2025 1:02 PM CDT Temperature 36.1 C (96.9 F) 05/01/2025 1:02 PM CDT Respiratory Rate 9 07/24/2024 1:50 PM TICKETING CLERK Oxygen Saturation 95% 05/01/2025 1:02 PM CDT Inhaled Oxygen Concentration 21% 07/24/2024 1 :50 PM TICKETING CLERK Weight 114.8 kg (253 lb) 05/01/2025 1:02 PM CDT Height 160 cm (5' 3) 05/01/2025 1:02 PM CDT Body Mass Index 44.82 05/01/2025 1:02 PM CDT Plan of Treatment Upcoming Encounters Date Type Department Care Team (Late st Contact Info) Description 06/26/2025 1:00 PM TICKETING CLERK Office Visit [facility] [address] [place] [address], [place] [address] [place] [address] [place] [phone] Health Maintenance Due Date Last Done Comments ZOSTER VACCINE (1 of 2) 2005 PAP SMEAR 05/28/2015 05/28/2012 HEPATITIS B VACCINE (2 of 2 - Risk Dialysis 4-dose series) 07/27/2016 07/27/2015, 09/15/2000, 05/29/2000, Additional history exists HPV VACCINE (3 - Risk 3-dose series) 06/04/2021 02/01/2021, 11/20/2020 MEDICARE AWV CALENDAR YEAR 2024 DIABETES RETINOPATHY SCREENING 11/05/2024 DIABETES-FOOT EXAM WITH MONOFILAMENT 11/05/2024 DIABETES-HGB A1C 11/05/2024 05/03/2024, 04/22/2014 COVID-19 VACCINE (3 - 2024- season) 2025 07/22/2021, 09/30/2020 PNEUMOCOCCAL VACCINE (3 of 3 - PCV20 or PCV21) 08/12/2025 08/12/2020, 07/27/2015, 05/20/2014, Additional history exists DTAP/TDAP/TD VACCINES (7 - Td or Tdap) 04/12/2034 04/12/2024, 03/06/2000, 09/18/1991, Additional history exists HIB VACCINE Completed 06/20/1990 HEPATITIS C SCREENING Completed 04/22/2014 , 01/12/2010, 01/05/2010 HIV SCREENING Completed 04/22/2014, 05/28/2012 DEPRESSION SCREENING Completed 10/07/2024 INFLUENZA VACCINE Completed 05/01/2025, , 04/06/2023, Additional history exists MENINGOCOCCAL (Group B) VACCINE SHARED DECISION-MAKING Aged Out No longer eligible based on patient's age to complete this topic MENINGOCOCCAL GROUPS A/C/Y/W VACCINE Aged Out No longer eligible based on patient's age to complete this topic Medical Devices Implanted Type Area Trademark Paralegal Device Identifier Shelf Expiration Date Model / Serial / Lot Patch Periph Vascu-Gurd 1.0cm X 8.0cm Implanted:Qty: 1 on 04/15/2016 by Spike Carpenter MD at [facility] Left: Arterial [employer] 10/18/2020 [id number] DISCONTINUED / / [id number] Clamp Extfix Jtx 10.5mm Bar To Bar Mr Sf Implanted:Qty: 5 on 04/13/2024 by Hardy Dejesus MD at [facility] Right: Ankle [employer] [id number] / / Bar Extfix 200mm Jtx Cfbr Nonster Disp Implanted:Qty: 3 on 04/13/2024 by Hardy Dejesus MD at [facility] Right: Ankle [employer] [id number] / / Pin Hlf 30mm 5mm Jtx Shrt Ti Ntrd Unlat Implanted:Qty: 2 on 04/13/2024 by Hardy Dejesus MD at [facility] Right: Ankle [employer] [id number] / / Clamp Extfix [id number] Qck Cnct Implanted:Qty: 2 on 04/13/2024 by Hardy Dejesus MD at [facility] Right: Ankle [employer] [id number] / / Pin Hlf 35mm 4mm Jtx Shrt Orth Ti Ntrd Implanted:Qty: 2 on 04/13/2024 by Hardy Dejesus MD at [facility] Right: Ankle [employer] [id number] / / 2.7mm Locking Screw, Self-Tapping, 44mm Implanted:Qty: 1 on 05/14/2024 by Anand Amador DO at [facility] Right: Ankle Synthes Trauma 02.211.044 / / Screw 2.7mm 5mm 44mm T8 Slf-Tap Strdr Implanted:Qty: 1 on 05/14/2024 by Anand Amador DO at [facility] Right: Ankle [employer]s Usa 202.963 / / Screw 2.7mm 12mm T8 Slf-Tap Lck Va Strdr Implanted:Qty: 1 on 05/14/2024 by Anand Amador DO at [facility] Right: Ankle [employer]sa 02.211.012 / / Screw 2.7mm 18mm T8 Slf-Tap Lck Va Strdr Implanted:Qty: 2 on 05/14/2024 by Anand Amador DO at [facility] Right: Ankle [employer]sa 02.211.018 / / Screw 2.7mm 22mm T8 Slf-Tap Lck Va Strdr Implanted:Qty: 2 on 05/14/2024 by Anand Amador, DO at [facility] Right: Ankle [employer]sa 02.211.022 / / Screw 2.7mm 38mm T8 Slf-Tap Lck Va Strdr Implanted:Qty: 1 on 05/14/2024 by Anand Amador, at [facility] Right: Ankle [employer] Usa 02.211.038 / / Screw 2.7mm 40mm T8 Slf-Tap Lck Va Strdr Implanted:Qty: 1 on 05/14/2024 by Anand Amador, DO at [facility] Right: Ankle [employer]sa 02.211.040 / / Screw 2.7mm 42mm T8 Slf-Tap Lck Va Strdr Implanted:Qty: 1 on 05/14/2024 by Anand Amador, DO at [facility] Right: Ankle [employer] Usa 02.211.042 / / Screw 2.7mm 48mm T8 Slf-Tap Lck Va Strdr Implanted:Qty: 1 on 05/14/2024 by Anand Amador DO at [facility] Right: Ankle [employer]sa 02.211.048 / / Screw 3.5mm 6mm 14mm Ft Josh Slf-Tap Sm Implanted:Qty: 3 on 05/14/2024 by Anand Amador DO at [facility] Right: Ankle [employer]sa 204.814 / / Screw 3.5mm 6mm 24mm 2.5mm Ft Slf-Tap Implanted:Qty: 2 on 05/14/2024 by Anand Amador DO at [facility] Right: Ankle [employer] Usa 204.824 / / Screw 3.5mm 6mm 26mm 2.5mm Ft Slf-Tap Implanted:Qty: 1 on 05/14/2024 by Anand Amador DO at [facility] Right: Ankle [employer]sa 204.826 / / Screw 3.5mm 6mm 28mm Slf-Tap Sm Hex Sckt Implanted:Qty: 2 on 05/14/2024 by Anand Amador DO at [facility] Right: Ankle [employer]sa 204.828 / / Screw 3.5mm 6mm 30mm 2.5mm Ft Slf-Tap Implanted:Qty: 1 on 05/14/2024 by Anand Amador DO at [facility] Right: Ankle [employer] Usa 204.830 / / 2.7mm / 3.5mm Variable Angle Lcp Anteriolateral Distal Tibia Plate, 6 Holes Right Implanted:Qty: 1 on 05/14/2024 by Anand Amador DO at [facility] Right: Ankle Synthes Trauma 02.118.204S / / Screw 2.7mm 44mm T8 Slf-Tap Strdr Lopro Implanted:Qty: 1 on 05/14/2024 by Anand Amador DO at [facility] Right: Ankle [employer] Usa 02.118.544 / / Plate 7 Hl Fib Rt Dist Lat 125mm Contr Implanted:Qty: 1 on 05/14/2024 by Anand Amador DO at [facility] Right: Ankle [employer] Usa 02.112.144S / / Screw 3.5mm 6mm 18mm Ft Josh Slf-Tap Sm Implanted:Qty: 1 on 05/14/2024 by Anand Amador DO at [facility] Right: Ankle [employer] Usa 204.818 / / Graft Bone Canc 4-9.5mm 15cc Frzdr [facility] - [id number] Implanted:Qty: 1 on 05/14/2024 by Anand Amador DO at [facility] Right: Ankle [employer] 10/22/2028 [id number] / [id number] / [id number] Plate 1/3 Tblr [id number] 7 Hl Colr Ss Implanted:Qty: 1 on 05/14/2024 by Anand Amador DO at [facility] Right: Ankle [employer] Usa 241.371 / / Explanted Type Area Trademark Paralegal Device Identifier Shelf Expiration Date Model / Serial / Lot Screw 3.5mm 2.9mm 16mm T15 Ft Slf-Tap Explanted:Qty: 1 on 05/14/2024 by Anand Amador DO at [facility] Right: Ankle [employer] Usa 212.104 / / Screw 3.5mm 2.9mm 20mm T15 Ft Slf-Tap Explanted:Qty: 1 on 05/14/2024 by Anand Amador DO at [facility] Right: Ankle [employer] Usa 212.106 / / Wire K 1.6mm 150mm Troc Pnt Ss Fx Explanted:Qty: 2 on 05/14/2024 by Anand Amador DO at [facility] Right: Ankle [employer]ynthes Usa 292.16 / / Wire K 2.5mm 150mm Troc Pnt Ss Fx Explanted:Qty: 2 on 05/14/2024 by Anand Amador DO at [facility] Right: Ankle [employer]ynthes Usa 292.25 / / Wire K 2mm 150mm Troc Tip Ss Fx Nonster Explanted:Qty: 1 on 05/14/2024 at [facility] Right: Ankle [employer]ynthe[employer] Usa 292.20 / / Wire K 2mm 228mm Troc Pnt Ss Prlc Plate Explanted:Qty: 2 on 05/14/2024 by Anand Amador DO at [facility] Right: Ankle [employer] [id number] / / Procedures Procedure Name Priority Date/Time Associated Diagnosis Comments HEMOGLOBIN A1C Routine 05/03/2024 4:52 AM CDT HEPATITIS C ANTIBODY Routine 04/22/2014 7:41 AM CDT HIV-1 HIV-2 ANTIGEN/ANTIBODY Routine 04/22/2014 7:41 AM CDT CYTOLOGY CERVICAL/VAG DIAG THIN PREP Today 05/28/2012 11:30 AM TICKETING CLERK from Last 3 Months or Most Recently Relevant to Health Maintenance Results * HEMOGLOBIN A1C (05/03/2024 4:52 AM CDT) Hemoglobin A1c 4.3 <=5.6 % 05/03/2024 9:18 AM CDT [facility] Estimated Average Glucose 77 mg/dL 05/03/2024 9:18 AM CDT [facility] Comment: HbA1c Interpretation: Normal : < 5.7% Pre-diabetes: 5.7-6.4% Diabetes: Equal to or greater than 6.5% Test results diagnostic of diabetes should be repeated for confirmation. Treatment target values recommended by ADA and other clinical organizations should be used to evaluate metabolic control in patients. Reference: [place] Diabetes Association, Standards of Care in Diabetes -2020 In patients 70 years and older consider HbA1c target range of 7.0-7.5% (Reference: Alireza Lee, et al. JAMDA. 2012) The Sebia assay for the measurement of HbA1c is a National Glycohemoglobin Standardization Program (NGSP) certified method. Blood BLOOD SPECIMEN / Unknown Venipuncture / Unknown 05/03/2024 4:52 AM CDT 05/03/2024 5:14 AM CDT us Rajiv Tilley MD LAB - CHEMISTRY ORDERABLES F inal Result Performing Organization Address City/[facility]/ZIP Co de Phone Number [facility] [address] [place] [address], [facility] [phone] * HIV-1 HIV-2 ANTIGEN/ANTIBODY (04/22/2014 7:41 AM CDT) Pathologist [facility] HIV Antigen/Antibod y 1 & 2 Non-reacti ve Non-react amelia [facility] Comment: Neither HIV-1 p24 Antigen nor HIV-1/HIV-2 Antibodies are detected. Blood specimen (specimen) BLOOD SPECIMEN / Unknown 04/22/2014 7:41 AM CDT 04/22/2014 7:52 AM CDT us Kale Eldridge MD LAB - HEMATOLOGY ORDERABLES Azucena l Result Performing Organization Address City/[facility]/ZIP Co de Phone Number [facility] [address] [place] [address], [facility] [phone] * HEPATITIS C ANTIBODY (04/22/2014 7:41 AM CDT) Hepatitis C Antibody Non-react amelia Non-reac tive [facility] Comment: Hepatitis C Antibody screen indicates no [...] MD LAB - CHEMISTRY ORDERABLES Final Result [facility] [address] [phone] * CYTOLOGY CERVICAL/VAG DIAG THIN PREP (05/28/2012 11:30 AM TICKETING CLERK) Comment Thin Prep [facility] Pap Smear Report See Scanned Report [facility] MICROSCOPIC CYTOLOGIC EXAMINATION OF SMEAR OF SPECIMEN FROM FEMALE GENITAL TRACT PREPARED USING PAPANICOLAOU TECHNIQUE / Unknown 05/28/2012 11:30 AM TICKETING CLERK 05/28/2012 12:54 PM TICKETING CLERK Narrative [facility] - 06/10/2012 1:14 PM TICKETING CLERK Performed By [facility]() [address] [facility] [place] [address] us Ainsley Barrios MD LAB - PATHOLOGY/CYTOLOGY BRENDA POLLARD Final Result [facility] [address] [place] [address] from Last 3 Months or Most Recently Relevant to Health Maintenance Insurance MED[place] AETNA MEDICARE [facility] AETNA MEDICARE ADV MEDICAID - [place] Advance [...]
--- OUTSIDE RECORDS SUMMARY | 2025-06-18 11:12 | XMS_ITS | Encounter Summary ---
Author Organization [facility] Address [address] [place] [address] Phone Care Team Providers Care Stitcher Around Name Role Phone Nitish Joel MD Primary Care Provider Encounter Details Date Type Department Care Team (Late st Contact Info) Description 08/29/2022 Transcribe Orders [facility] Central Scheduling [address] [place] [address] Nacho Harper MD [address] [place] [address] Social History Tobacco Use Types Packs/Day Years Used Date Smoking Tobacco: Never Assessed Comments Unknown Sex and Gender Information Value Date Recorded Sex Assigned at Not on file Legal Sex Female 4:23 PM OFFENSIVE COORDINATOR Gender Identity Not on file Sexual Orientation Not on file COVID-19 Exposure Response Date Recorded In the last 10 days, have yo u been in contact with someone who was confirmed or suspected to have Coronavirus/COVID-19? No / Unsure 09/01/2022 1:49 PM OFFENSIVE COORDINATOR documented as of this encounter Plan of Treatment Not on file documented as of this encounter Visit Diagnoses Not on filedocumented in this encounter Care Teams Stitcher Around Relationship Specialty Start Date End Date Nitish Joel MD PCP - General Urology 02/17/22 documented as of this encounter
--- OUTSIDE RECORDS SUMMARY | 2025-06-18 11:12 | XMS_ITS | Clinical Summary ---
Author Organization [facility] Address [address], [facility] [address] [place] [address] Phone Care Team Providers Care Motor Rebuilder Name Role Phone Nitish Joel MD Primary [...] on file Legal Sex Female 4:23 PM FINANCIAL SALES MANAGER Gender Identity Not on file Sexual Orientation Not on file Plan of Treatment Health Maintenance Due Date Last Done Comments Hepatitis C Virus (HCV) Screening 1985 TdaP Immunization 1985 Pap Smear 2007 Hepatitis B Immunization (2 of 3 - 19+ 3-dose series) 08/24/2015 07/27/2015 Cervical Cancer Screening (CCS) 2016 HPV/Cotest 2016 Human Papillomavirus (HPV) Immunization (3 - 3-dose SCDM series) 05/23/2021 02/01/2021, 11/20/2020 Medicare Initial AWV [id number] 07/17/2021 Influenza Immunization (#1) 2025 09/18/2009 SARS-COV-2 Immunization ( - season) 2025 07/22/2021, 09/30/2020 Respiratory Syncytial Virus (RSV) Immunization (Adult) (1 - 1-dose 75+ series) 2061 Pneumococcal Immunization Combined Aged Out 07/27/2015, 01/23/2011, 09/18/2009 No longer eligible based on patient's age to complete this topic Varicella Immunization Completed 6, 07/27/2015 Meningococcal Immunization (ACWY) Aged Out No longer eligible b ased on patient's age to complete this topic Rotavirus Immunization Aged Out No lo nger eligible based on patient's age to complete this topic Insurance [place]ICARE [place] MEDICARE C [place] Care Teams Motor Rebuilder Relationship Specialty Start Date End Date Nitish Joel MD PCP - General Urology 02/17/22
--- OUTSIDE RECORDS SUMMARY | 2025-06-18 11:13 | XMS_ITS | Patient Health Record ---
Author Organization [facility] Address [address] [place] [id number] Care Team Providers Care Community Development Worker Name Role Phone Juana DRUMMOND, [facility] [phone] Reason For Referral No Information Social History Tobacco Use: Social History Observation Description Date Details (start date - stop date) Current Smoker NA - NA Social History Drugs/Alcohol: Social Info Question Answer Notes Alcohol Screen Did you have a drink containing alcohol in the past year? No Points 0 Interpretation Negative Tobacco Use: Social Info Question Answer Notes Tobacco Use/Smoking Are you a current smoker Problems Problem Type SNOMED Code ICD Code Onset Dates Problem Status W/U Status Risk Notes Problem End stage renal disease (56852532) End stage renal disease (N18.6) Active confirmed Problem Other mechanical complication of surgically created arteriovenous fistula, initial encounter (T82.590A) Active confirmed Problem Dependence on renal dialysis (381287748) Dependence on renal dialysis (Z99.2) Active confirmed Plan Of Treatment No Information Insurance Providers Payer Name Payer Address Payer Phone Subscriber Number Group Number Insured Name Patient Relationship to Insured Coverage Start Date Coverage End Date MEDICARE PART B [address] [address] [place], [place] [id number] Mily Oliveros Self - patient is the insured [facility] [address] [address] [place], [place] [phone] Sidney Oliverosah Self - patient is the insured Medical (General) History Medical History History ICD Code ESRD
== END 2025-06-18 10:03 | disposition home or self-care (01) ==
LOC: ANHFOHIMG 10:03
PROVIDERS: Visit Provider Internal Medicine Nephrology
DX: Z78.0 Asymptomatic menopausal state (principal)
CPT/HCPCS: 77080